=== PATIENT | male | born 1945 | race Caucasian/White ===

== ENCOUNTER 2017-02-02 05:15 | Inpatient (IN) ==
[2017-02-02] MEDS ORDERED: Ipratropium/Albuterol Neb 3 ML ONE (05:21)
[2017-02-02] MEDS ORDERED: Ipratropium/Albuterol Neb 3 ML IH ONE (05:26)
[2017-02-02] MEDS ORDERED: methylPREDNISolone 125 MG/2 ML VIAL IVP ONE (05:26)
[2017-02-02] MEDS ORDERED: Aspirin 325 MG TABLET PO ONE (05:32)
--- NOTE | 2017-02-02 05:36 | Emergency Department Note ---
Disposition Clinical Impression: Chest pain, Shortness of breath STEMI (ST elevation myocardial infarction) Qualifiers: Involved coronary artery: unspecified coronary artery Qualified Code(s): I21.3 - ST elevation (STEMI) myocardial infarction of unspecified site Disposition: Admitted As Inpatient Condition: Serious Time of Disposition: 06:46 SOB HPI - General Chief Complaint: ED Shortness of Breath/Dyspnea Stated Complaint: TALHA Time Seen by Provider: 02/02/17 05:18 Source: patient, EMS Mode of arrival: EMS Limitations: no limitations Nursing Notes Reviewed: Yes Vital Signs Reviewed: Yes - History of Present Illness Patient presents to the ED with the chief complaint of shortness of breath. 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 Status post kidney resection a few years ago. 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 States that he also woke up with chest heaviness and tightness that is centralized, nonradiating, nonpleuritic, better or worse with nothing. No previous history of pain like this, no previous h/o ND, not on ASA/Plavix, no anti-coagulation. EMS reports they got to his house and he was giving himself a breathing treatment and was very SOB. Once they placed him on oxygen. He reports feeling better. Reports that he gets chemotherapy every other Friday and is due up this coming Friday. Had several rounds radiation for previous lung cancer and is scheduled to start radiation again seen, last dose was over 2 years ago. No fever or vomiting. Has had pain and swelling in both of his legs equally bilaterally. - Related Data Home Medications Medication Instructions Recorded Confirmed Cyclobenzaprine [Flexeril] 10 mg PO TID 02/21/15 01/17/17 Albuterol Neb [Proventil Neb] 2.5 mg IH TID 10/01/16 01/17/17 Oxycodone HCl [Oxycontin] 10 mg PO TID PRN 10/01/16 01/17/17 Oxymorphone HCl [Opana] 10 mg PO Q4H 10/16/16 01/17/17 Albuterol Sulfate [Albuterol 1 puff IH Q4H PRN 10/24/16 01/17/17 Inhaler] Tamsulosin HCl [Flomax] 0.8 mg PO DAILY 10/24/16 01/17/17 Previous Rx's Medication Instructions Recorded Phenazopyridine [Pyridium] 100 mg PO TID PRN #90 tablet 10/18/16 LORazepam [Ativan] 0.5 mg PO Q6H PRN #90 tablet 10/24/16 Lidocaine/Prilocaine CREAM [Emla] 5 gm TP AD #1 tube 10/24/16 Loratadine [Claritin] 10 mg PO PRN PRN #60 capsule 10/24/16 Magic Mouthwash 10 ml PO TID PRN #260 ml 10/24/16 Omeprazole [PriLOSEC] 20 mg PO DAILY #90 cap 10/24/16 Ondansetron [Zofran] 8 mg PO Q8HR PRN #90 tablet 10/24/16 Prochlorperazine Maleate 10 mg PO Q6HR PRN #60 tablet 10/24/16 [Compazine] Loperamide [Imodium] 2 cap PO AD PRN #30 capsule 11/01/16 Zolpidem [Ambien] 5 mg PO HS PRN #10 tablet 11/22/16 Amitriptyline [Elavil] 25 mg PO HS #60 tablet 01/22/17 Allergies Allergy/AdvReac Type Severity Reaction Status Date / Time penicillin V AdvReac Unknown unknown Verified 11/22/16 13:14 Penicillins AdvReac Unknown unknown Verified 11/22/16 13:14 vancomycin AdvReac Unknown unknown Verified 11/22/16 13:14 Beta-lactam AdvReac Unknown unknown Uncoded 11/22/16 13:14 Constitutional: Denies: fever Eyes: Denies: vision change Cardiovascular: Reports: chest pain, dyspnea on exertion, edema Respiratory: Reports: cough, dyspnea Gastrointestinal: Denies: nausea, vomiting Musculoskeletal: Denies: back pain Past Medical History - Past Medical History Attestation: Yes The following information was validated with the patient. Source: patient Medical history: Reports: asthma, cancer, COPD, hyperlipidemia, hypertension, renal disease Surgical history: Reports: appendectomy, cancer surgery Psychiatric history: Reports: no psych history - Social History Smoking Status: Current every day smoker Smokeless Tobacco Status: No Alcohol use: Reports: occasionally Drug use: Reports: none Physical Exam - General Limitations: no limitations General appearance: alert, in distress - Head Head exam: atraumatic, normocephalic, normal inspection - Eye Eye exam: Present: PERRL - ENT ENT exam: mucous membranes dry - Respiratory Respiratory exam: Present: respiratory distress, wheezes (Throughout), accessory muscle use. Absent: normal lung sounds bilaterally - Cardiovascular Cardiovascular exam: Present: tachycardia, systolic murmur - Abdominal Exam Abdominal exam: Present: soft, Non-Tender - Extremities Exam Extremities exam: Present: pedal edema (bilat 2+) - Neurological Exam Neurological exam: Present: alert, oriented X3 - Psychiatric Psychiatric exam: Present: anxious - Skin Skin exam: Present: warm, intact, normal color, diaphoresis Course Course Narrative: Patient presenting with chest pain and shortness breath. No history of CAD, however, has concerning symptoms. EKG, chest x-ray, lab work ordered will be admitted. Could also be COPD exacerbation and/or pulmonary embolism due to active cancer. - Reevaluation(s) Reevaluation #1: I spoke with slackman, Dr. Mai, due to the patient's pain and EKG morphology changes, he agreed with the STEMI alert and will be in. Time: 05:49 Vital Signs Temperature 0 F L 02/02/17 05:17 Pulse Rate 102 02/02/17 05:17 Respiratory Rate 30 02/02/17 05:17 Blood Pressure 102/84 02/02/17 05:17 O2 Sat by Pulse Oximetry 98 02/02/17 05:17 Temperature 0 F L 02/02/17 06:30 Pulse Rate 96 02/02/17 06:20 Respiratory Rate 0 02/02/17 06:30 Blood Pressure 0/0 02/02/17 06:30 O2 Sat by Pulse Oximetry 98 02/02/17 06:20 Oxygen Delivery Oxygen Delivery Simple Mask Shortness of Breath/Dyspnea - Lab Data Result diagrams: 02/02/17 06:00 02/02/17 06:00 - EKG Data EKG attestation: Yes I reviewed and interpreted this EKG. EKG results narrative: EKG obtained at 05:35, patient having active chest pain, EKG shows sinus rhythm , rate 99, VT interval 125, QRS 88, QTC 385, normal axis, ST segment elevation in leads 2 and aVF and borderline in lead 3, which is significantly changed from previous on 09/27/2016. STEMI Alert called Attestation Statement - Attestation Attestation: I personally interviewed and examined this patient and my medical decision- making was reviewed with the ED Resident Physician, Dr. Field. I agree with the documented findings, disposition and treatment plan as described except to the extent set forth below. Patient is 71-year-old white male who presented by EMS today with complaints of shortness of breath and substernal chest pain. Symptoms began acutely approximately 20 minutes prior to arrival and arrives in respiratory distress on a nonrebreather with tachypnea and increased work of breathing. Patient's complaining of ongoing substernal chest discomfort on arrival to the ED. EKG obtained on arrival showed changes concerning for possible inferior ST elevation although low voltage made it difficult to read. We quickly obtained a second EKG and patient repositioning and felt that it was showing definite changes from prior EKGs in total morphology with ST elevation in 2 and F and flattened T waves across the anterior leads. At this point we called a STEMI alert and spoke with Dr. Foster by phone in regards to patient's EKG changes and ongoing pain diaphoresis and shortness of breath. STEMI alert initiated, appropriate meds ordered, labs drawn and sent, and PCXR ordered. Patient will be sent directly to the [facility] for further intervention and treatment of chest pain in ST elevation ND.
[2017-02-02] MEDS ORDERED: Aspirin 81 MG TAB.CHEW PO ONE (05:46)
[2017-02-02] MEDS ORDERED: *HR* Ticagrelor 90 MG TABLET PO ONE (05:46)
[2017-02-02] MEDS ORDERED: *HR* Heparin 5,000 UNIT/ML VIAL IVP ONE (05:46)
[2017-02-02] MEDS ORDERED: Heparin 25,000 UNIT/500 ML D5W 25,000 UNIT/500 ML MLS IVC SCH (06:00)
[2017-02-02] MEDS ORDERED: *HR* FentaNYL (PF) 100 MCG/2 ML VIAL ONE (06:14)
[2017-02-02] MEDS ORDERED: 0.9 % Sodium Chloride 1,000 ML ONE (06:14)
[2017-02-02] MEDS ORDERED: *HR* Midazolam HCl 5 MG/5 ML VIAL IVP ONE (06:14)
[2017-02-02] MEDS ORDERED: Heparin 1,000 UNITS/500 mL NS 500 ML ONE ×2 (06:14→16:35)
[2017-02-02] MEDS ORDERED: Verapamil 5 MG/2 ML VIAL ONE (06:14)
[2017-02-02] MEDS ORDERED: *HR* Heparin 10,000 UNIT/10 ML VIAL ONE (06:15)
[2017-02-02] MEDS ORDERED: Nitroglycerin 1,000 MCG/10 ML VIAL IV ONE (06:15)
[2017-02-02 06:24] LABS: Basophils % 0.1 %; Hemoglobin 7.6 g/dL (12.9-16.9); Lymphocytes % 4.9 %; Nucleated Red Blood Cells 0.9 /100 WBC (0)
[2017-02-02 06:26] LABS: Hematocrit 22.9 % (37.5-50.1); Immature Granulocytes % 4.2 % (0-4); Immature Platelets 9.2 % (1.1-6.1); Lymphocytes # 1.1 K/mcL (0.6-4.6); Mean Corpuscular HGB Conc 33.2 g/dL (31.6-35.5); Mean Corpuscular Hemoglobin 36.9 pg (28.0-33.3); Mean Corpuscular Volume 111.2 fL (83.0-100.0); Mean Platelet Volume 11.9 fL (9.4-12.4); Monocytes # 2.4 K/mcL (0.0-1.3); Monocytes % 10.3 %; Neutrophils # 18.7 K/mcL (1.6-8.9); Red Blood Count 2.06 M/mcL (4.19-5.50); Segmented Neutrophils % 80.5 %
[2017-02-02 06:35] LABS: INR 1.7; Prothrombin Time 18.1 Seconds (9.4-12.1)
[2017-02-02 06:38] LABS: Activated Partial Thrombo Time 25.2 Seconds (26.0-36.0)
[2017-02-02 06:39] LABS: Platelet Count 27 K/mcL (140-400); Potassium 4.4 mEq/L (3.5-4.5)
--- NOTE | 2017-02-02 06:58 | Pre-Sedation Evaluation ---
Pre-sedation evaluation - Pre-sedation checklist Date of procedure: 02/02/17 Procedure: [facility] Recent Vitals: Last Vital Signs Temp 0 F L 02/02/17 06:30 Pulse 96 02/02/17 06:20 Resp 0 02/02/17 06:30 BP 0/0 02/02/17 06:30 Pulse Ox 98 02/02/17 06:20 H&P (including ROS) documented in medical record: Yes Previous reaction to sedatives/anesthetics: No Dietary Status: NPO after Midnight Dentition: poor dentition ASA Classification *see protocol: CLASS II-Mild systemic disease Plan of Care: Pt appropriate candidate for procedure/moderate/conscious sedation , Risks/benefits of procedure/sedation discussed w/ patient/family
[2017-02-02 06:59] LABS: Anisocytosis 1+ (Not Present); Macrocytosis Present (Not Present); Platelet Estimate Marked Decrease (Normal)
[2017-02-02 07:00] LABS: Poikilocytosis 1+ (Not Present); Polychromasia 1+ (Not Present)
--- NOTE | 2017-02-02 07:01 | Cardiology History & Physical ---
Date of Encounter: 02/02/17 Time of Encounter: 07:00 Assessment and Plan (1) COPD exacerbation Current Visit: Yes Status: Acute Nebs, steroids, antibiotics. Will call hospitalist to discuss transfer as [facility] shows minimal CAD with normal EF. The assessment and plan as outlined above was discussed with the patient and/or family members who expressed understanding and agreement. All questions were answered. (2) Acute kidney injury Current Visit: Yes Status: Acute Labs drawn in ED returned after cath completed show ROLANDA. 200 NS/hour. The assessment and plan as outlined above was discussed with the patient and/or family members who expressed understanding and agreement. All questions were answered. (3) Primary cancer of right upper lobe of lung Current Visit: No Status: Chronic Undergoing chemoradiation. The assessment and plan as outlined above was discussed with the patient and/or family members who expressed understanding and agreement. All questions were answered. (4) Thrombocytopenia Current Visit: Yes Status: Acute The assessment and plan as outlined above was discussed with the patient and/or family members who expressed understanding and agreement. All questions were answered. (5) Chest pain Current Visit: Yes Status: Acute Severe chest pain with questionable inferior current of injury. STEMI alert activated by ED. Aspirin, brilinta and heparin given in ED. The assessment and plan as outlined above was discussed with the patient and/or family members who expressed understanding and agreement. All questions were answered. Qualifiers: Chest pain type: other chest pain Qualified Code(s): R07.89 - Other chest pain; R07.8 - Other chest pain History of Present Illness Chief complaint: chest pain/dyspnea HPI: Mr. Doss is a 71 year old male with COPD and lung cancer on chemoradiation along with bladder mets presenting to ED with chest pain, weakness and falls. Initial history reported by ED was sudden onset severe chest pain not relieved with aspirin/NTG and respiratory distress. EKG concerning for borderline inferior ST changes concerning for STEMI per ED and STEMI alert was activated. 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 After cardiac catheterization complete, further history obtained from patient and family notes chest pain for several months. He decided to come in today because he had severe chest pain, felt weak, dyspneic as well and fell a few times. Past Med Surg Social Fam HX - Past Medical History Medical history: asthma, cancer, COPD, hyperlipidemia, hypertension, renal disease Psychiatric history: no psych history - Past Surgical History Surgical History: appendectomy, cancer surgery - Social History Smoking Status: Current every day smoker Smokeless Tobacco Status: No Alcohol use: occasionally Drug use: none Medications and Allergies Cyclobenzaprine [Flexeril] 10 mg PO TID 02/21/15 [History] Albuterol Neb [Proventil Neb] 2.5 mg IH TID 10/01/16 [History] Oxycodone HCl [Oxycontin] 10 mg PO TID PRN 10/01/16 [History] Oxymorphone HCl [Opana] 10 mg PO Q4H 10/16/16 [History] Phenazopyridine [Pyridium] 100 mg PO TID PRN #90 tablet 10/18/16 [Rx] Albuterol Sulfate [Albuterol Inhaler] 1 puff IH Q4H PRN 10/24/16 [History] LORazepam [Ativan] 0.5 mg PO Q6H PRN #90 tablet 10/24/16 [Rx] Lidocaine/Prilocaine CREAM [Emla] 5 gm TP AD #1 tube 10/24/16 [Rx] Loratadine [Claritin] 10 mg PO PRN PRN #60 capsule 10/24/16 [Rx] Magic Mouthwash 10 ml PO TID PRN #260 ml 10/24/16 [Rx] Omeprazole [PriLOSEC] 20 mg PO DAILY #90 cap 10/24/16 [Rx] Ondansetron [Zofran] 8 mg PO Q8HR PRN #90 tablet 10/24/16 [Rx] Prochlorperazine Maleate [Compazine] 10 mg PO Q6HR PRN #60 tablet 10/24/16 [Rx] Tamsulosin HCl [Flomax] 0.8 mg PO DAILY 10/24/16 [History] Loperamide [Imodium] 2 cap PO AD PRN #30 capsule 11/01/16 [Rx] Zolpidem [Ambien] 5 mg PO HS PRN #10 tablet 11/22/16 [Rx] Amitriptyline [Elavil] 25 mg PO HS #60 tablet 01/22/17 [Rx] Allergies penicillin V Adverse Reaction (Unknown, Verified 11/22/16 13:14) unknown Penicillins Adverse Reaction (Unknown, Verified 11/22/16 13:14) unknown vancomycin Adverse Reaction (Unknown, Verified 11/22/16 13:14) unknown Beta-lactam Adverse Reaction (Unknown, Uncoded 11/22/16 13:14) unknown All Systems Review: A 10-system review of systems was performed and is negative for pertinent findings except as documented above in the HPI. - Constitutional Constitutional: no chills, no fever(s) - EENT Eyes: no blurred vision, no loss of vision Nose, mouth and throat: no bleeding gums, no epistaxis - Cardiovascular Cardiovascular: chest pain at rest, chest pain with exertion, dyspnea at rest, dyspnea on exertion - Respiratory Respiratory: cough, dyspnea, no hemoptysis - Gastrointestinal Gastrointestinal: no hematemesis, no hematochezia - Genitourinary Genitourinary: no dysuria, no hematuria - Integumentary Integumentary: no erythema, no rash - Neurological Neurological: no syncope, no tingling - Psychiatric Psychiatric: no anxiety, no depression - Hematological/Lymphatic Hematologic/Lymphatic: no easy bleeding, no easy bruising Physical Examination Vital Signs, Last 4 Hours Temp Pulse Resp BP Pulse Ox 02/02/17 06:30 0 F L 0 0/0 02/02/17 06:20 96 18 106/62 98 02/02/17 06:05 99 18 112/69 98 02/02/17 05:50 100 30 116/68 98 02/02/17 05:49 99 General: Conversant, Other (resp distress) HEENT: Atraumatic Neck: No JVD Cardiac: Reg Rate and Rhythm Lungs: Other (wheeze) Neuro: Alert and responsive Abdomen: Soft Skin: No rashes noted on visualized skin Musculoskeletal: No Chest Wall Tenderness Extremities: No Edema Results 02/02/17 06:00 02/02/17 06:00 Lab Results 02/02/17 02/02/17 02/02/17 06:00 06:00 06:00 WBC 23.2 H Hgb 7.6 L Hct 22.9 L Plt Count 27 L* INR 1.7 APTT 25.2 L Sodium 130 L Potassium 4.4 Chloride 95 L Carbon Dioxide 25 BUN 41 H Creatinine 1.95 H Glucose 139 H Calcium 9.0 Magnesium 2.0 Troponin I B-Natriuretic Peptide 02/02/17 02/02/17 06:00 06:00 WBC Hgb Hct Plt Count INR APTT Sodium Potassium Chloride Carbon Dioxide BUN Creatinine Glucose Calcium Magnesium Troponin I 0.01 B-Natriuretic Peptide 146 H - EKG Interpretation EKG results cardiology: sinus rhythm (questionable inferior st changes)
[2017-02-02] MEDS ORDERED: Levofloxacin 500 MG/100 ML 500 MG/100 ML BAG IVPB ONE (07:07)
[2017-02-02] MEDS ORDERED: 0.9 % Sodium Chloride 1,000 ML IVC ONE (07:10)
[2017-02-02] MEDS ORDERED: Ipratropium/Albuterol Neb 3 ML IH PRN (07:11)
--- NOTE | 2017-02-02 07:12 | Invasive Diagnostic Lab Proc ---
Name: Renzo Doss Date of Study: 02/02/2017 Date: 1945 Ht: 68.1in Medical Record#: [id number] Age: 71 Wt: 159.99lb Gender: Male BSA: 1.86 Order #: [id number] BMI: 24.25 Physicians Procedure Physician: Oskar Mai MD, [facility] Referring MD: Referring MD: Staff Name Position Time In [facility] RT (R) Scrub 06:37 AM Juan Narayanan RN Director Medical Economics 06:37 AM Maria A Atkins RN Director Medical Economics 06:37 AM Linnea Santos RT (R) Monitor 06:37 AM Indications Indication STEMI Procedures Performed Procedure L HRT ARTERY/VENTRICLE ANGIO Pre-Procedure Checklist Informed consent is complete signed and on chart. H&P is on chart. ID band is on and ID verified with patient. Patient NPO for procedure The procedure was described for the patient and questions were answered. Blood Pressure: 127/80 ECG is on chart. Rhythm: NSR Plan of Care Patient will tolerate the procedure without complications. Adequate level of comfort will be maintained. Hemodynamics will remain stable Patient will recover from procedure without complications. Respiratory function will be maintained. Cardiac rhythm will remain stable. Patient temperature will be maintained. Patient and/or family have verbalized understanding of the procedure. Patient Education Intravenous Access Time IV Size Location DC'd Fluid/Drip Rate Units RN 06:30 AM 20g 1 /" Patent On Arrival Rt Arm 0.9NaCl 25 ml/hr 06:30 AM Port Allergies Opioid Penicillin codeine penicillin V Beta-lactam vancomycin Opioids - Morphine Analogues Penicillins Vital Signs Time BP (mmHg) HR (bpm) O2 Sat. RR (bpm) LOC / % 5 = Fully awake and oriented or at pre-proc level 06:38 AM 127 / 80 97 100 % 4 = Oriented but drowsy 06:36 AM 127 / 80 97 100 % 19 06:41 AM 137 / 77 97 100 % 16 06:46 AM 118 / 71 95 100 % 11 06:38 AM / % 4 = Oriented but drowsy Procedural Medications Time Medication Dose Units Method Given By 06:38 AM Oxygen 6 L/min Oxy Mask Maria A Atkins RN 06:38 AM Versed 2 mg Intravenous Juan Narayanan RN 06:38 AM Fentanyl 25 mcg Intravenous Juan Narayanan RN 06:38 AM Lidocaine 2% 0.5 ml Subcutaneous Oskar Mai MD, [facility] 06:39 AM Heparin 4000 units Nitroglycerin 200 mcg Verapamil 2.5 mg Intraarterial Oskar Mai MD, FAC 06:40 AM Lidocaine 2% 15 ml Subcutaneous Oskar Mai MD, [facility] Masha Score Preprocedure Postprocedure Activity 2- Moves 4 extremities sustained head lift Activity 2- Moves 4 extremities sustained head lift Circulation 2- SBP +/= 20 points of pre-anesthetic level Circulation 2- SBP +/= 20 points of pre-anesthetic level Consciousness 2- Awake and alert oriented x 3 Consciousness 2- Awake and alert oriented x 3 O2 Saturation 2- Able to maintain O2 satruation of 92% on room air O2 Saturation 2- Able to maintain O2 satruation of 92% on room air Respiratory 2- Able to deep breathe and cough well Respiratory 2- Able to deep breathe and cough well Total Score 10 Total Score 10 Contrast Agent: Isovue Diagnostic Contrast: 63 ml Total Contrast: 63 ml Fluoro Dose: 125 mGy Activated Clotting Time Time Seconds to Clot 06:50 AM 202 Procedure Log Time Note Enter By 06:32 AM Vitals capture started with the following parameters, Patient=Adult, Interval=5 min, Initial Jhofhmsd=834 mmHg, Deflation Rate=5 mmHg, Cuff placed on Right Arm 06:32 AM CathStat 06:36 AM Vitals capture started with the following parameters, Patient=Adult, Interval=5 min, Initial Tcwinizh=477 mmHg, Deflation Rate=5 mmHg, Cuff placed on Right Arm 06:36 AM HR=97 bpm, GXHD=365/80 mmhg, GzU3=535.0 %, Resp=19 B/min 06:37 AM Pt arrived to label paster 2 at 06:37 ejohnson 06:37 AM Physician arrived 06:37 ejohnson 06:37 AM Meet and greet completed ejohnson 06:37 AM Sign in performed according to hospital policy. ejohnson 06:37 AM Procedure start 06:37 ejohnson 06:37 AM Torrie Avelar RT (R) Position: Scrub Time in: 06:37 ejohnson 06:37 AM Juan Narayanan RN Position: Director Medical Economics Time in: 06:37 ejohnson 06:37 AM Maria A Atkins RN Position: Director Medical Economics Time in: 06:37 ejohnson 06:37 AM Recorded ECG: HR=97 Condition=Condition 1 06:37 AM Linnea Santos RT (R) Position: Monitor Time in: 06:37 ejohnson 06:37 AM Patient charges- Angio tray pack, Navilyst 3mm J, Pulse Oximetry and ACIST tubing and transducer ejohnson 06:38 AM Time: 06:37 Patient comfortable and pain free: Yes ejohnson 06:38 AM Time: 06:38LOC: 4 = Oriented but drowsy ejohnson 06:38 AM Time: 06:38 Oxygen on at 6 L/min per Oxy Mask by Maria A Atkins RN ejohnson 06:38 AM Time: 06:38 Versed 2 mg Intravenous Given by Juan Narayanan RN ejohnson 06:38 AM Time: 06:38 Fentanyl 25 mcg Intravenous Given by Juan Narayanan RN ejohnson 06:38 AM Time out performed according to hospital policy ejohnson 06:38 AM Pressure channel 1 zero failed. 06:39 AM Time: 06:38 0.5 ml Lidocaine 2% to right radial Subcutaneous Given by Oskar Mai MD, [facility] ejohnson 06:40 AM Recorded Pressure: Ao, HR=96, Condition=Condition 1 (Aorta) Ao 122/63/91 06:40 AM Time: 06:40 15 ml Lidocaine 2% to right groin Subcutaneous Given by Oskar Mai MD, [facility] ejohnson 06:40 AM Pressure channel 1 zero failed. 06:41 AM 6Fr IM Runway guide catheter was used to cannulate the PCI vessel successfully. reused? No ejohnson 06:41 AM RCA angiography performed in multiple views. ejohnson 06:41 AM Catheter removed ejohnson 06:41 AM 5Fr FL 4 catheter inserted over the wire DNC ejohnson 06:41 AM Access obtained by percutaneous puncture. 6Fr 10cm Terumo [place] sheath placed in right Femoral artery. [id number] ejohnson 06:41 AM HR=97 bpm, FETY=503/77 mmhg, QvF4=699.0 %, Resp=16 B/min 06:42 AM LCA angiography performed in multiple views. ejohnson 06:42 AM Recorded Pressure: Ao, HR=96, Condition=Condition 1 (Aorta) Ao 108/92/100 06:43 AM Catheter removed ejohnson 06:43 AM Pressure channel 1 zeroed. 06:43 AM 5Fr Pigtail catheter inserted over the wire DNC ejohnson 06:43 AM Catheter selectively placed in left ventricle ejohnson 06:43 AM Bolus angiogram of left Ventricle complete: 10 ml/sec for a total of 25 mls ejohnson 06:44 AM Recorded Pressure: LV, HR=96, Condition=Condition 1 (Left Ventricle) LV 111/8/19 06:44 AM Recorded Pressure: LV, Ao, HR=96, Condition=Condition 1 (Left Ventricle) LV 90/90/75, (Aorta) Ao 104/62/80 06:45 AM Catheter removed ejohnson 06:45 AM Bolus angiogram of right Femoral complete: 4 ml/sec for a total of 7 mls ejohnson 06:46 AM Procedure completed at 06:46 ejohnson 06:46 AM Sign out completed: Radiation Dose 124.65 mGy Fluoro Time: 0.8 Isovue 370 - 200ml contrast 63 ml given by Oskar Mai MD, FACC. Complications: NoneCardiac Rehab Consult needed: NoConfirmed administered medications: No ejohnson 06:46 AM Isovue 370 - 200ml,1 Bottle(s) used. ejohnson 06:46 AM HR=95 bpm, VDSS=918/71 mmhg, SvG7=798.0 %, Resp=11 B/min, Comment=NSR 06:47 AM Post ECG NSR ejohnson 06:48 AM Post Blood Pressure 118/71 ejohnson 06:48 AM 06:48 Post Pulses Bilateral DP & PT 1+ ejohnson 06:48 AM Information taught Cardiac Cath ejohnson 06:48 AM Education needs Procedure, Plan of Care, and Disease Process ejohnson 06:48 AM Learning barriers :None ejohnson 06:48 AM Family placed in consult room. ejohnson 06:48 AM Complications: None ejohnson 06:48 AM Fluoro Time: 0.8 ejohnson 06:48 AM Isovue 370 - 200ml contrast 63 ml given by Oskar Mai MD, FACC. ejohnson 06:48 AM Radiation Dose 124.65 mGy ejohnson 06:53 AM Time: 06:38 Patient comfortable and pain free: Yes ejohnson 06:53 AM Time: 06:38LOC: 4 = Oriented but drowsy ejohnson 06:57 AM Report given to Diya NICHOLS Pt taken to Room #11. 06:56 ejohnson 07:04 AM Patient out of room: 07:04 ejohnson Complications Complication None None Hemodynamics Pressures Site Systolic/A Wave Diastolic/V Wave Mean AO 122 63 91 AO 108 92 100 LV 111 8 19 LV 90 90 75 AO 104 62 80 Post Procedure Information Blood Pressure: 118/71 mmHg Rhythm: NSR Post procedural instructions were given Pulses Time Site Pre-Procedure Post-Procedure Note 02/02/2017 6:36:00 AM Bilateral radial 1+ 02/02/2017 6:36:00 AM Bilateral DP & PT 1+ 6:48:00 AM Bilateral DP & PT 1+ Updated by Maria A Atkins RN on 02/02/2017 7:04:38 AM Maria A Atkins RN electronically signed on 02/02/2017 7:05:10 AM with status of Final
[2017-02-02] MEDS ORDERED: 0.9 % Sodium Chloride 1,000 ML IVC SCH ×3 (07:15→14:22)
--- NOTE | 2017-02-02 08:12 | Invasive Diagnostic Lab ---
Name: Renzo Doss Date of Study: 02/02/2017 Date: 1945 Ht: 173.0 cm /68.1 in Medical Record#: [id number] Age: 71 Wt: 72.6 kg / 159.99 lb Account/Order#: [id number] Gender: Male BSA: 1.86 Order #: [id number] Fluoro Dose: 125 mGy BMI: 24.25 Procedure Physician: Oskar Mai MD, FACC Referring MD: Referring MD: Procedures Performed: LEFT HEART CATH Iliofemoral angiography Indications: STEMI Impressions: There is minimal coronary artery disease. The left ventricle is normal and has normal contractility EF 60% Recommendations: Optimal medical therapy of patient's disease. Aggressive risk factor modification. History/Risk Factors: CP SOB Cancer Current/Recent Smoker Procedure Access obtained in the right Femoral artery by percutaneous puncture. Angiogram via sheath completed. Complications: None, None Contrast: Isovue 63ml Hemodynamics: Pressures Site Systolic/ A Wave Diastolic/ V Wave End Diastolic/ Mean HR AO 122 63 91 96 AO 108 92 100 96 LV 111 8 19 96 LV 90 90 75 98 AO 104 62 80 95 LV Ventriculography Ejection Method: LV Gram Ejection Fraction: 60% Wall Motion: HAYES Anterobasal Normal Anterolateral Normal Apical: Normal Inferoapical Normal Inferobasal Normal Coronary Dominance: right Lesion Findings/Interventions * Left Main Coronary Artery The LMCA is angiographically free of disease. * Left Anterior Descending There is a 15% stenosis in the Mid LAD. * Circumflex There is a 15% stenosis in the Mid Circumflex. * Right Coronary Artery There is a 15% stenosis in the Distal RCA. Iliofemoral angiography shows appropriate sheath placement in [employer]. No significant disease visualized. Updated by Oskar Mai MD, FACC on 02/02/2017 8:04:29 AM Oskar Mai MD, FACC electronically signed on 02/02/2017 8:08:36 AM with status of Final
[2017-02-02] MEDS ORDERED: *HR* Atropine Sulfate 1 MG/10 ML SYRINGE ONE (08:14)
[2017-02-02] MEDS ORDERED: Acetaminophen 325 MG TABLET PO PRN (08:54)
[2017-02-02] MEDS ORDERED: Ondansetron 4 MG/2 ML VIAL IVP PRN (08:54)
[2017-02-02] MEDS ORDERED: Naloxone 0.4 MG/ML INJ IVP PRN (08:54)
[2017-02-02] MEDS ORDERED: *HR* Morphine 2 MG/ML SYRINGE IVP PRN ×3 (08:54→18:36)
--- NOTE | 2017-02-02 09:08 | Internal Med History&Physical ---
Date of Encounter: 02/02/17 Time of Encounter: 08:15 Assessment and Plan (1) STEMI (ST elevation myocardial infarction) Current visit: Yes Status: Ruled-out Patient presented with chest pain, dyspnea and hypoxia associated with changes in EKG with possible ST elevation. STEMI alert was called in the emergency room , cardiology was consulted and patient underwent emergent left heart catheterization, which minimal CAD and normal EF. Patient is being transferred to hospitalist service at this time. Qualifiers: Involved coronary artery: unspecified coronary artery Qualified Code(s): I21.3 - ST elevation (STEMI) myocardial infarction of unspecified site (2) Sepsis Current visit: Yes Status: Acute Patient presented with tachycardia, tachypnea, leukocytosis, mild lactic acidosis with possible pneumonia. Continue IV hydration and IV antibiotics. Monitor vital signs closely. High risk for complications. Qualifiers: Sepsis type: sepsis due to unspecified organism Qualified Code(s): A41.9 - Sepsis, unspecified organism (3) COPD exacerbation Current visit: Yes Status: Acute Patient is a chronic smoker, trying to cut down but continues to smoke. Continue scheduled bronchodilators and start IV steroids. Supplemental oxygen as needed, wean down FiO2 as tolerated. Home oxygen evaluation at the time of discharge. Patient is very reluctant to stay in the hospital, but currently agreeable to stay tonight after explaining the concerns regarding underlying pneumonia, renal failure, anemia and thrombocytopenia. (4) Pneumonia Current visit: Yes Status: Acute Patient presents with respiratory distress, noted to have hypoxia and leukocytosis, chest x-ray shows possible infiltrates in bilateral lower lobes, could be fluid versus pneumonia. Given his immunosuppression due to ongoing chemotherapy and multiple malignancies, will start broad-spectrum IV antibiotics -aztreonam and Levaquin. Follow blood cultures. We will get CT chest for further evaluation. Supplemental oxygen and supportive care. Pneumococcal immunization if not received. Qualifiers: Pneumonia type: due to unspecified organism Laterality: bilateral Lung location: lower lobe of lung Qualified Code(s): J18.9 - Pneumonia, unspecified organism (5) Acute on chronic renal failure Current visit: Yes Status: Chronic Patient is noted to have chronic kidney disease stage III and follows with nephrology as outpatient. Baseline serum creatinine noted to be around 1.2 and it is currently 1.95. Could be related to chemotherapy, underlying infection. Start IV hydration and monitor serum creatinine closely. Dose antibiotics according to current GFR. Qualifiers: Acute renal failure type: unspecified Chronic kidney disease stage: stage 3 (moderate) Qualified Code(s): N17.9 - Acute kidney failure, unspecified; N18.3 - Chronic kidney disease, stage 3 (moderate) (6) Bladder cancer Current visit: Yes Status: Chronic Follows with oncology and urology as outpatient. Plan for cystectomy in the future when he is stable from chemotherapy for other cancers. 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 His cancer was deemed inoperable and he has been receiving chemotherapy, follows with oncology as outpatient. (8) Cancer of left kidney Current visit: Yes Status: Inactive Status post left nephrectomy. (9) Chronic pain Current visit: Yes Status: Chronic Continue when necessary oxycodone and IV morphine. Qualifiers: Chronic pain type: due to neoplasm Qualified Code(s): G89.3 - Neoplasm related pain (acute) (chronic) (10) Anxiety Current visit: Yes Status: Chronic Continue benzodiazepines, patient is also noted to be on Elavil and Ambien for insomnia. (11) Tobacco use disorder Current visit: Yes Status: Chronic Advised smoking cessation, patient understands the risks of continued smoking due to underlying lung cancer and COPD. He is trying to cut down, nicotine transdermal patch. (12) Anemia Current visit: Yes Status: Chronic Patient is noted to have macrocytic anemia with hemoglobin 7.6 today, which is noted to be lower than on his previous labs. This could be related to chemotherapy. Will check stool for occult blood. Check iron profile, vitamin B12 and folate levels. Qualifiers: Anemia type: unspecified type Qualified Code(s): D64.9 - Anemia, unspecified (13) Thrombocytopenia Current visit: Yes Status: Acute Noted to have platelet count of 27,000, which is a new onset of thrombocytopenia for patient. This could be related to chemotherapy versus underlying pneumonia and sepsis. Continue to monitor for active signs of bleeding, avoid medical anticoagulation for now. Internal Medicine - H&P: HPI Chief complaint: Shortness of breath Admitted From: Emergency Dept Plans for Post Hospital Care: Home History of present illness: Mr. Doss is a 71 year old male with history of multiple malignancies including lung, kidney and bladder cancer, currently on chemotherapy, presents with complaints of shortness of breath. Patient does have a somewhat poor baseline functional status with intermittent hacking cough and exertional dyspnea at baseline. He reports worsening symptoms of shortness of breath over the last 2 months associated with intermittent coughing bouts after which he feels too weak and falls down, causing multiple bruising on his hands and legs. He had an especially difficult night yesterday with retrosternal chest pain, shortness of breath even at rest associated with wheezing. He tried using albuterol inhaler and nebulizers at home, which did not relieve his symptoms and he had to call EMS. He cannot elaborate on his chest pain further. Patient was noted to be hypoxic and somewhat improved with supplemental oxygen given by EMS. STEMI alert was called in the ER due to EKG changes and patient just returned from heart catheterization that was non-occlusive. Past Med Surg Social Fam HX - Past Medical History Medical history: cancer (right lung, left kidney, bladder), COPD, hypertension, renal disease Psychiatric history: anxiety - Past Surgical History Surgical History: appendectomy, cancer surgery (left nephrectomy in 2004) - Social History Smoking Status: Current every day smoker Packs per day: smokes cigars, currently down to 4-5cigars a day Smokeless Tobacco Status: No Alcohol use: occasionally Drug use: none Occupational status: retired Current living situation: Home, With Family Activity Level: Uses cane/walker Recent Out of Country Travel Within the Last 8 Weeks: No - Family History Mother Hx Family Cancer: Yes (lung cancer) Hx Family Endocrine Disorder: Yes (DM) Father Hx Family Cancer: Yes (Lung cancer) Brother Hx Family Cancer: Yes (Throat cancer) Internal Medicine - H&P: Meds Cyclobenzaprine [Flexeril] 10 mg PO TID 02/21/15 [History] Albuterol Neb [Proventil Neb] 2.5 mg IH TID 10/01/16 [History] Oxycodone HCl [Oxycontin] 10 mg PO TID PRN 10/01/16 [History] Oxymorphone HCl [Opana] 10 mg PO Q4H 10/16/16 [History] Phenazopyridine [Pyridium] 100 mg PO TID PRN #90 tablet 10/18/16 [Rx] Albuterol Sulfate [Albuterol Inhaler] 1 puff IH Q4H PRN 10/24/16 [History] LORazepam [Ativan] 0.5 mg PO Q6H PRN #90 tablet 10/24/16 [Rx] Lidocaine/Prilocaine CREAM [Emla] 5 gm TP AD #1 tube 10/24/16 [Rx] Loratadine [Claritin] 10 mg PO PRN PRN #60 capsule 10/24/16 [Rx] Magic Mouthwash 10 ml PO TID PRN #260 ml 10/24/16 [Rx] Omeprazole [PriLOSEC] 20 mg PO DAILY #90 cap 10/24/16 [Rx] Ondansetron [Zofran] 8 mg PO Q8HR PRN #90 tablet 10/24/16 [Rx] Prochlorperazine Maleate [Compazine] 10 mg PO Q6HR PRN #60 tablet 10/24/16 [Rx] Tamsulosin HCl [Flomax] 0.8 mg PO DAILY 10/24/16 [History] Loperamide [Imodium] 2 cap PO AD PRN #30 capsule 11/01/16 [Rx] Zolpidem [Ambien] 5 mg PO HS PRN #10 tablet 11/22/16 [Rx] Amitriptyline [Elavil] 25 mg PO HS #60 tablet 01/22/17 [Rx] Allergies penicillin V Adverse Reaction (Unknown, Verified 11/22/16 13:14) unknown Penicillins Adverse Reaction (Unknown, Verified 11/22/16 13:14) unknown vancomycin Adverse Reaction (Unknown, Verified 11/22/16 13:14) unknown Beta-lactam Adverse Reaction (Unknown, Uncoded 11/22/16 13:14) unknown All Systems PM: A 10-system review of systems was performed and is negative for pertinent findings except as documented above in the HPI. - Constitutional Constitutional: no chills, no fever(s), no night sweats - EENT Eyes: no change in vision, no discharge, no pain, no photophobia Ears: no ear discharge, no ear pain, no tinnitus Nose, mouth and throat: no dysphagia, no nasal discharge, no neck pain, no sore throat - Cardiovascular Cardiovascular ROS IM: chest pain, dyspnea, dyspnea on exertion, edema, no diaphoresis, no lightheadedness, no palpitations, no syncope - Respiratory Respiratory: cough, dyspnea, dyspnea on exertion, wheezing, chest congestion - Gastrointestinal Gastrointestinal: no abdominal pain, no diarrhea, no hematemesis, no hematochezia, no melena, no nausea, no vomiting - Musculoskeletal Musculoskeletal ROS IM: no numbness, no tingling - Integumentary Integumentary IM: no rash, no unusual bruising - Neurological Neurological ROS: no confusion, no convulsions, no focal weakness, no numbness, no tingling, no tremor(s) - Hematologic/Lymphatic Hematologic/Lymphatic: no easy bruising - Constitutional Vitals: Temp Pulse Resp BP Pulse Ox 0 F L 87 18 134/87 95 02/02/17 06:30 02/02/17 09:06 02/02/17 07:21 02/02/17 09:06 02/02/17 09:06 General appearance: Present: mild distress, A&O X 3, answers questions appropriately - Respiratory Respiratory exam: Present: rhonchi, wheezes (Bilateral bronchial breath sounds and diffuse wheezing anteriorly and posteriorly). Absent: accessory muscle use , rales - Cardiovascular Cardiovascular exam: Present: RRR, +S1, +S2. Absent: diastolic murmur, gallop, rubs, systolic murmur - GI/Abdominal GI/Abdominal exam: Present: normal bowel sounds, soft, no peritoneal signs. Absent: distended, tenderness - Extremities Exam Extremities exam: Present: full ROM, pedal edema (1+ pitting pedal edema bilateral legs), warm, radial pulses palpable and symetrical. Absent: calf tenderness, cyanotic - Neurological Exam Neurological exam: Present: CN II-XII intact, oriented X3, no focal deficits. Absent: pronater drift, facial droop, speech deficit - Skin Skin exam: Present: dry, intact Internal Med - H&P Results - Labs CBC & Chem 7: 02/02/17 06:00 02/02/17 06:00 Labs: Short CBC 02/02/17 Range/Units 06:00 WBC 23.2 H (4.3-11.1) K/mcL Hgb 7.6 L (12.9-16.9) g/dL Hct 22.9 L (37.5-50.1) % Plt Count 27 L* (140-400) K/mcL Neutrophils # 18.7 H (1.6-8.9) K/mcL BMP 02/02/17 06:00 Sodium 130 L Potassium 4.4 Chloride 95 L Carbon Dioxide 25 BUN 41 H Creatinine 1.95 H Glucose 139 H Calcium 9.0 Cardiac Enzymes 02/02/17 Range/Units 06:00 Troponin I 0.01 (0-0.03) ng/mL - EKG Data -: EKG Interpreted by Myself EKG shows normal: sinus rhythm, ST-T waves (Noted to have 0.5-[address] segment elevation in leads 2, 3, aVF) Rate: normal
[2017-02-02] MEDS: Ipratropium/Albuterol Neb 3 ML IH SCH ×4 (11:11→23:27)
[2017-02-02] MEDS: Levofloxacin 750 MG/150 ML 750 MG/150 ML BAG IVPB SCH (11:41)
--- NOTE | 2017-02-02 14:48 | Event Note ---
Date of Encounter: 02/02/17 Time of Encounter: 14:20 - Cardiology Event Note ED activated for STEMI secondary to chest pain and concern for inferior EKG changes. s/p uncomplicated LHC with mild CAD and normal EF. Labs returned after LHC - patient is thrombocytopenic, anemic, and coagulopathic (plt 27, hgb 7.6, INR 1.7) likely due to metastatic cancer and recent chemotherapy. Then, patient underwent CT chest with findings consistent with hemorrhagic pericardial effusion. Subsequent echo shows moderate-large pericardial effusion with early echo signs of tamponade (patient not tachycardic on echo). PRBC, platelet, and FFP ordered to be transfused. CT surgery called for urgent pericardial window. Suspect that pericardial effusion is malignant and has been worsening, possibly exacerbated by patients thrombocytopenia and coagulopathy (patient also given brilinta and heparin in the ED).
--- NOTE | 2017-02-02 16:42 | Cardiothoracic Consult Note ---
Date of Encounter: 02/02/17 Time of Encounter: 16:43 Assessment and Plan (1) Pericardial effusion with cardiac tamponade Current Visit: Yes Status: Acute The patient is a 71-year-old hypertensive male with hypercholesterolemia, known COPD, and known right lung cancer who presents with a severe episode of left precordial chest pain and shortness of breath. These symptoms have been present for several weeks; however, the episode this morning caused him profound shortness of breath which took quite some time to recover from. The patient underwent a chest CT and transthoracic echocardiogram which revealed evidence of a pericardial effusion with early tamponade physiology. The patient has been recommended for subxiphoid pericardial window. The patient has thrombocytopenia and he has received 6 units of platelets. He also has an elevated INR and will receive FFP during the operation. The patient understands the procedure, benefits, alternatives, and risk, including but not limited to bleeding, infection, injury to the diaphragm, heart, lungs, pneumothorax, and . He gives his informed consent and will proceed with urgent subxiphoid pericardial window this afternoon. The assessment and plan as outlined above was discussed with the patient and/or family members who expressed understanding and agreement. All questions were answered. (2) Pericardial effusion Current Visit: Yes Status: Acute The assessment and plan as outlined above was discussed with the patient and/or family members who expressed understanding and agreement. All questions were answered. - History of Present Illness Consult date: 02/02/17 Requesting physician: Oskar Mai Consult reason: Pericardial effusion with early tapenade physiology. Chief complaint: Substernal chest pain and shortness of breath History of present illness: Mr. Doss is a 71 year old hypertensive man with COPD, hypercholesterolemia, and metachronous bladder cancer, kidney cancer, and right hilar lung cancer. The patient was initially diagnosed with right upper lobe squamous cell lung cancer in 2013. The patient underwent workup; however, was deemed to be an operative candidate because of his COPD with decreased FEV1 and stage IIIB chronic kidney disease. The patient was treated with chemotherapy and radiation therapy and was in remission until recently. A repeat PET scan revealed right hilar hypermetabolic activity. The patient is currently undergoing chemotherapy and was to be evaluated by radiation oncology tomorrow. During the last several weeks the patient has complained of left precordial chest pain and shortness of breath. This morning the symptoms were particularly severe and the patient was evaluated [facility] emergency department. During the evaluation the patient was thought to have an inferior STEMI and underwent emergent cardiac catheterization. This revealed normal coronary anatomy with no flow-limiting lesions and an LVEF 60%. A chest CT revealed a pericardial effusion and subsequent evaluation by transthoracic echocardiogram revealed early tamponade physiology with RV collapse. The patient has been recommended for urgent subxiphoid pericardial window. Past Med Surg Social Fam HX - Past Medical History Medical history: asthma, cancer (Bladder, kidney, right upper lobe lung), COPD, hyperlipidemia, hypertension, renal disease, TIA Psychiatric history: no psych history - Past Surgical History Surgical History: appendectomy, cancer surgery, other (Left nephrectomy.) - Social History Smoking Status: Current every day smoker Packs per day: smokes cigars, currently down to 4-5cigars a day Smokeless Tobacco Status: No Alcohol use: occasionally Drug use: none Occupational status: retired Current living situation: Home - Independent Activity Level: Independent ambulation Recent Out of Country Travel Within the Last 8 Weeks: No Exposure or Possible Exposure to Illness During Travel: No - Family History Mother Hx Family Cancer: Yes (lung cancer) Hx Family Endocrine Disorder: Yes (DM) Father Hx Family Cancer: Yes (Lung cancer) Brother Hx Family Cancer: Yes (Throat cancer) Medications and Allergies Cyclobenzaprine [Flexeril] 10 mg PO TID 02/21/15 [History] Albuterol Neb [Proventil Neb] 2.5 mg IH TID 10/01/16 [History] Oxycodone HCl [Oxycontin] 10 mg PO TID PRN 10/01/16 [History] Oxymorphone HCl [Opana] 10 mg PO Q4H 10/16/16 [History] Phenazopyridine [Pyridium] 100 mg PO TID PRN #90 tablet 10/18/16 [Rx] Albuterol Sulfate [Albuterol Inhaler] 1 puff IH Q4H PRN 10/24/16 [History] LORazepam [Ativan] 0.5 mg PO Q6H PRN #90 tablet 10/24/16 [Rx] Lidocaine/Prilocaine CREAM [Emla] 5 gm TP AD #1 tube 10/24/16 [Rx] Loratadine [Claritin] 10 mg PO PRN PRN #60 capsule 10/24/16 [Rx] Magic Mouthwash 10 ml PO TID PRN #260 ml 10/24/16 [Rx] Omeprazole [PriLOSEC] 20 mg PO DAILY #90 cap 10/24/16 [Rx] Ondansetron [Zofran] 8 mg PO Q8HR PRN #90 tablet 10/24/16 [Rx] Prochlorperazine Maleate [Compazine] 10 mg PO Q6HR PRN #60 tablet 10/24/16 [Rx] Tamsulosin HCl [Flomax] 0.8 mg PO DAILY 10/24/16 [History] Loperamide [Imodium] 2 cap PO AD PRN #30 capsule 11/01/16 [Rx] Zolpidem [Ambien] 5 mg PO HS PRN #10 tablet 11/22/16 [Rx] Amitriptyline [Elavil] 25 mg PO HS #60 tablet 01/22/17 [Rx] amLODIPine [Norvasc] 5 mg PO DAILY 02/02/17 [History] Allergies penicillin V Adverse Reaction (Unknown, Verified 11/22/16 13:14) unknown Penicillins Adverse Reaction (Unknown, Verified 11/22/16 13:14) unknown vancomycin Adverse Reaction (Unknown, Verified 11/22/16 13:14) unknown Beta-lactam Adverse Reaction (Unknown, Uncoded 11/22/16 13:14) unknown All Systems Review: A 10-system review of systems was performed and is negative for pertinent findings except as documented above in the HPI. Physical Examination Vital Signs, Last 4 Hours Temp Pulse Resp BP Pulse Ox 02/02/17 16:21 98.2 F 102 16 121/70 94 02/02/17 16:08 100 112/75 96 02/02/17 15:49 17 95 02/02/17 14:19 98.6 F 100 18 111/82 95 02/02/17 14:04 98.2 F 102 16 99/62 95 General: Conversant, No Apparent Distress Neck: No JVD, Normal carotid pulses Cardiac: Reg Rate and Rhythm, Normal S1 and S2, No Murmur Lungs: Other (Wheezes bilaterally.) Neuro: Alert and responsive, No focal deficits noted Vascular: Normal capillary refill Abdomen: Soft, Non-tender Musculoskeletal: No Chest Wall Tenderness Extremities: No Clubbing, No Cyanosis, No Edema Results 02/02/17 06:00 02/02/17 06:00 Lab Results, Last 24 hours 02/02/17 02/02/17 02/02/17 06:00 06:00 06:00 WBC 23.2 H Hgb 7.6 L Hct 22.9 L Plt Count 27 L* INR 1.7 APTT 25.2 L Sodium 130 L Potassium 4.4 Chloride 95 L Carbon Dioxide 25 BUN 41 H Creatinine 1.95 H Glucose 139 H Calcium 9.0 Magnesium 2.0 Troponin I B-Natriuretic Peptide 02/02/17 02/02/17 06:00 06:00 WBC Hgb Hct Plt Count INR APTT Sodium Potassium Chloride Carbon Dioxide BUN Creatinine Glucose Calcium Magnesium Troponin I 0.01 B-Natriuretic Peptide 146 H - Imaging Chest Xray: image reviewed (Small to moderate right pleural effusion.) Consult Discharge Plan - Plan [facility]: [facility]Primary Care Provider[facility] -
[2017-02-02] MEDS ORDERED: Clindamycin 900 MG/50 ML 900 MG/50 ML IV.SOLN IVPB ONE (17:20)
[2017-02-02] MEDS ORDERED: *HR* FentaNYL (PF) 250 MCG/5 ML VIAL ONE (17:28)
[2017-02-02] MEDS ORDERED: *HR* Phenylephrine 10 MG/ML VIAL ONE (17:37)
[2017-02-02] MEDS ORDERED: *HR* Rocuronium Bromide 50 MG/5 ML VIAL ONE (17:37)
[2017-02-02] MEDS ORDERED: Dexamethasone 4 MG/ML VIAL ONE (17:37)
[2017-02-02] MEDS ORDERED: *HR* EPINEPHrine 1 MG/ML AMPUL ONE (17:39)
[2017-02-02] MEDS ORDERED: Lidocaine 2% Syringe 100 MG/5 ML ONE (17:39)
[2017-02-02] MEDS ORDERED: *HR* Succinylcholine 200 MG/10 ML VIAL IVP ONE (18:09)
[2017-02-02] MEDS ORDERED: *HR* Etomidate 20 MG/10 ML AMPUL IVP ONE (18:09)
--- NOTE | 2017-02-02 18:12 | Operative Note ---
Date of procedure: 02/02/17 Pre-op diagnosis: Pericardial effusion with early tamponade physiology Post-op diagnosis: same Procedure: 1. Subxiphoid pericardial window. Implants: None. Complications: None. Anesthesia: SHELLEY Surgeon: Delaney Manley Estimated blood loss (cc): 10 Specimen: Pericardial fluid, anterior pericardium Condition: stable Disposition: PACU Procedure in Detail: INDICATIONS FOR OPERATION: The patient is a 71-year-old hypertensive male with hypercholesterolemia, known COPD, and known right lung cancer who presents with a severe episode of left precordial chest pain and shortness of breath. These symptoms have been present for several weeks; however, the episode this morning caused him profound shortness of breath which took quite some time to recover from. The patient underwent a chest CT and transthoracic echocardiogram which revealed evidence of a pericardial effusion with early tamponade physiology. The patient has been recommended for subxiphoid pericardial window. FINDINGS AT OPERATION: The patient had approximately 750 mL of a serosanguineous, turbid fluid in the pericardium. No other abnormalities noted. DESCRIPTION OF OPERATION: After obtaining informed Consent from the patient, he was taken to the operating room where satisfactory general endotracheal anesthetic was induced. Appropriate monitoring lines placed, the patient's chest and upper abdomen were prepped and draped in a sterile fashion. A vertical incision was then made over this xiphoid process through the skin and subcutaneous tissue. The xiphoid process was identified and removed with Metzenbaum scissors. Using blunt scissors dissection, the anterior pericardium was exposed. Lateral pericardial fat was dissected using electrocautery. The anterior pericardium was exposed and opened with a 15 blade. Proximally 750 mL of serosanguineous fluid was withdrawn. The portion of the fluid was sent for CBC, chemistry (including glucose, LDH, and total protein), culture protheses including aerobic, anaerobic, fungal, and TB), and cytology. A 32 Maltese right angle chest tube was then placed along the diaphragm. The rectus abdominis fascia, subcutaneous tissue, and skin edges were reapproximated using running Vicryl sutures. Steri-Strips and a sterile dressing were applied. The patient was transferred to the PACU in satisfactory postoperative condition. There were no intraoperative complications, and instrument, needle, and sponge count were correct at end of operation.
--- NOTE | 2017-02-02 18:57 | Anesthesia Evaluation PreOp ---
Date of Encounter: 02/02/17 Time of Encounter: 16:30 - Past History Cardiac History: HTN, Hyperlipidemia, Other (Pericardial effusion) Pulmonary History: COPD [employer] AGENT History: TIA Anesthesia History: No Prior Anesthetic Complications Alcohol Use: occasionally Drug use: none Medications and Allergies Cyclobenzaprine [Flexeril] 10 mg PO TID 02/21/15 [History] Albuterol Neb [Proventil Neb] 2.5 mg IH TID 10/01/16 [History] Oxycodone HCl [Oxycontin] 10 mg PO TID PRN 10/01/16 [History] Oxymorphone HCl [Opana] 10 mg PO Q4H 10/16/16 [History] Phenazopyridine [Pyridium] 100 mg PO TID PRN #90 tablet 10/18/16 [Rx] Albuterol Sulfate [Albuterol Inhaler] 1 puff IH Q4H PRN 10/24/16 [History] LORazepam [Ativan] 0.5 mg PO Q6H PRN #90 tablet 10/24/16 [Rx] Lidocaine/Prilocaine CREAM [Emla] 5 gm TP AD #1 tube 10/24/16 [Rx] Loratadine [Claritin] 10 mg PO PRN PRN #60 capsule 10/24/16 [Rx] Magic Mouthwash 10 ml PO TID PRN #260 ml 10/24/16 [Rx] Omeprazole [PriLOSEC] 20 mg PO DAILY #90 cap 10/24/16 [Rx] Ondansetron [Zofran] 8 mg PO Q8HR PRN #90 tablet 10/24/16 [Rx] Prochlorperazine Maleate [Compazine] 10 mg PO Q6HR PRN #60 tablet 10/24/16 [Rx] Tamsulosin HCl [Flomax] 0.8 mg PO DAILY 10/24/16 [History] Loperamide [Imodium] 2 cap PO AD PRN #30 capsule 11/01/16 [Rx] Zolpidem [Ambien] 5 mg PO HS PRN #10 tablet 11/22/16 [Rx] Amitriptyline [Elavil] 25 mg PO HS #60 tablet 01/22/17 [Rx] amLODIPine [Norvasc] 5 mg PO DAILY 02/02/17 [History] Allergies penicillin V Adverse Reaction (Unknown, Verified 11/22/16 13:14) unknown Penicillins Adverse Reaction (Unknown, Verified 11/22/16 13:14) unknown vancomycin Adverse Reaction (Unknown, Verified 11/22/16 13:14) unknown Beta-lactam Adverse Reaction (Unknown, Uncoded 11/22/16 13:14) unknown Anesthesia Results - Labs 02/02/17 06:00 02/02/17 06:00 Anesthesia Exam NPO (# of Hours): 4 - HEENT Mallampati: II Teeth: Missing, Poor dentition Oral Opening: Greater than 3 - [employer]ENT LOC: Oriented - Cardiac Rhythm: Regular Murmur: None - Pulmonary Breath Sounds: bilateral Clear (Diminished, shallow) Respiratory Effort: Labored Anesthesia Assess/Plan ASA Score: 4, E Modified Alex Scale for Level of Consciousness: Cooperative, oriented, and tranquil Anesthetic Plan: General Autologous Blood: No Monitoring Plan: A-Line Recovery Plan: PACU
--- NOTE | 2017-02-02 19:00 | Anesthesia Evaluation Post Op ---
Date of Encounter: 02/02/17 Time of Encounter: 19:00 - Lungs Lungs: Clear Ascult./Percussion - Airway Airway: Non-obstructed - Cardiovascular Regular Rate, Baseline Rhythm - Mental Status Mental Status: Alert & Oriented, Answers Appropriately - Nausea Vomiting Nausea Vomiting: Not Present - Hydration Hydration: Ice chips - Discharge PostOp Status: Transfer Patient to floor
[2017-02-02] MEDS: Aztreonam 1,000 MG in D5% in Water (Mini-Bag+) 100 ML IVPB SCH (20:02)
[2017-02-02] MEDS: MethylPREDNISolone 40 MG/ML VIAL IVP SCH (20:04)
[2017-02-02] MEDS: *HR* LORazepam 0.5 MG TABLET PO PRN (20:05)
[2017-02-02] MEDS: 0.9 % Sodium Chloride 1,000 ML IVC SCH (20:07)
[2017-02-02] MEDS: *HR* OxyCODONE Immed Rel 5 MG TABLET PO PRN (22:09)
[2017-02-03 04:51] LABS: Hemoglobin 7.5 g/dL (12.9-16.9); Mean Corpuscular HGB Conc 34.1 g/dL (31.6-35.5); Mean Corpuscular Hemoglobin 36.2 pg (28.0-33.3); Mean Corpuscular Volume 106.3 fL (83.0-100.0); Mean Platelet Volume 10.5 fL (9.4-12.4); Nucleated Red Blood Cells 0.4 /100 WBC (0); Red Blood Count 2.07 M/mcL (4.19-5.50); Red Cell Distribution Width 23.2 % (11.5-14.5)
[2017-02-03 05:15] LABS: BUN/Creatinine Ratio 25 (6-26); Blood Urea Nitrogen 38 mg/dL (8-26); Calcium 8.9 mg/dL (8.6-10.8); Carbon Dioxide 29 mEq/L (19-29); Chloride 99 mEq/L (98-109); Glucose 133 mg/dL (70-99); LDL Cholesterol,Direct 73 mg/dL (< 100); Magnesium 2.1 mg/dL (1.6-2.6); Osmolality,Calculated 287 (280-300); Sodium 133 mEq/L (136-145); Total Protein 6.3 g/dL (6.0-8.3); eGFR For African Americans 55 (> 60); eGFR For Non-African Americans 45 (> 60)
[2017-02-03] MEDS: Ipratropium/Albuterol Neb 3 ML IH SCH ×5 (05:16→20:19)
[2017-02-03 05:20] LABS: Platelet Count 45 K/mcL (140-400)
[2017-02-03 05:21] LABS: Monocytes # 2.5 K/mcL (0.0-1.3); Neutrophils # 28.4 K/mcL (1.6-8.9)
[2017-02-03 05:22] LABS: Anisocytosis 3+ (Not Present); Macrocytosis Present (Not Present); Platelet Estimate Decreased (Normal); Toxic Granulation Present (Not Present)
[2017-02-03 05:23] LABS: Basophilic Stippling 1+ (Not Present); Microcytosis Present (Not Present); Polychromasia 2+ (Not Present)
[2017-02-03 05:35] LABS: % Iron Saturation 25 % (20-55); Iron 82 mcg/dL (65-175); Transferrin 237 mg/dL (174-364)
[2017-02-03 05:55] LABS: Ferritin 1596 ng/ml (22-275)
[2017-02-03] MEDS: Clindamycin 900 MG/50 ML 900 MG/50 ML IV.SOLN IVPB SCH (06:19)
[2017-02-03] MEDS: *HR* OxyCODONE Immed Rel 5 MG TABLET PO PRN ×2 (06:20→21:38)
[2017-02-03] MEDS: MethylPREDNISolone 40 MG/ML VIAL IVP SCH (06:20)
[2017-02-03] MEDS: Aztreonam 1,000 MG in D5% in Water (Mini-Bag+) 100 ML IVPB SCH (06:21)
[2017-02-03] MEDS: *HR* LORazepam 0.5 MG TABLET PO PRN ×3 (06:21→21:37)
[2017-02-03 06:57] LABS: INR 1.7; Prothrombin Time 18.3 Seconds (9.4-12.1)
--- NOTE | 2017-02-03 08:34 | Cardiothoracic Progress Note ---
Date of Encounter: 02/03/17 Time of Encounter: 08:32 - Assessment and plan (1) Primary cancer of right upper lobe of lung Current Visit: Yes Status: Chronic The assessment and plan as outlined above was discussed with the patient and/or family members who expressed understanding and agreement. All questions were answered. The patient is status post pericardial window. We will leave his chest tube another day or 2. - Subjective Interval history: The patient feels better and is anxious for discharge. Vital Signs, Last 4 Hours Temp Pulse Resp BP Pulse Ox 02/03/17 08:22 18 95 02/03/17 07:07 98.0 F 85 16 107/63 97 02/03/17 05:16 16 98 02/03/17 05:00 91 97 Oxgyen Flow Rate Oxygen Flow Rate (LPM) 6 Clinical Data, last 8 Hours Output, Chest Tube Drainage 140 Amount [#1] Output, Chest Tube Drainage 140 Amount [#1] Output, Urine Amount 650 Weight 02/01/17 02/02/17 02/03/17 23:59 23:59 23:59 Weight 83.1 kg Lungs are clear to percussion and auscultation. Heart is in a normal sinus rhythm with good heart tones. His incision is healing well without signs of infection. Chest tube drainage is minimal. - Labs 02/03/17 04:30 02/03/17 04:30 Lab Results, Last 24 hours 02/03/17 02/03/17 02/03/17 04:30 04:30 05:55 WBC 30.9 H* Hgb 7.5 L Hct 22.0 L Plt Count 45 L D INR 1.7 Sodium 133 L Potassium 5.0 H Chloride 99 Carbon Dioxide 29 BUN 38 H Creatinine 1.53 H Glucose 133 H Calcium 8.9 Magnesium 2.1 - VTE Documentation of Mechanical Device: Intermittent pneumatic compression device Consult Discharge Plan - Plan [facility]errals: [facility] [Primary Care Provider[facility] -
[2017-02-03] MEDS: *HR* OxyCODONE/APAP 5/325 TABLET PO PRN ×2 (08:41→13:11)
[2017-02-03 11:47] LABS: Folate 9.5 ng/mL (7.0-31.4)
[2017-02-03 11:48] LABS: Vitamin B12 > 2000 pg/mL (213-816)
[2017-02-03 12:11] LABS: Hematocrit 21.8 % (37.5-50.1); Hemoglobin 7.3 g/dL (12.9-16.9); Mean Corpuscular HGB Conc 33.5 g/dL (31.6-35.5); Mean Corpuscular Volume 107.4 fL (83.0-100.0); Mean Platelet Volume 10.4 fL (9.4-12.4); Red Blood Count 2.03 M/mcL (4.19-5.50); Red Cell Distribution Width 23.9 % (11.5-14.5)
[2017-02-03 12:12] LABS: Platelet Count 50 K/mcL (140-400)
[2017-02-03] MEDS ORDERED: Clindamycin 900 MG/50 ML 900 MG/50 ML IV.SOLN IVPB SCH (14:00)
[2017-02-03] MEDS ORDERED: Aztreonam 1,000 MG in D5% in Water (Mini-Bag+) 100 ML IVPB SCH (14:00)
[2017-02-03] MEDS ORDERED: MethylPREDNISolone 40 MG/ML VIAL IVP SCH (14:30)
--- NOTE | 2017-02-03 15:20 | Electrocardiograph Report ---
[place] [id number] Test Date: 2017-02-02 Pat Name: Renzo Doss Department: 104 Room: 2N11 Gender: M Intermediate Teacher: JOSAFAT : 1945 Requested By: Mal Field Order Number: [id number] Reading MD: Oskar Mai MD Measurements Intervals [place] Rate: 98 P: 22 PA: 128 QRS: 25 QRSD: 93 T: 32 QT: 370 QTc: 425 Interpretive Statements SINUS RHYTHM LOW QRS VOLTAGE IN PRECORDIAL LEADS Poor R wave progression Electronically Signed On 02-03-2017 15:19:20 EDT by Oskar Mai MD
--- NOTE | 2017-02-03 16:38 | Internal Med Progress Note ---
Date of Encounter: 02/03/17 Time of Encounter: 10:45 - Assessment and plan (1) Pericardial effusion with cardiac tamponade Current Visit: Yes Status: Acute Assessment and plan: Patient with a history of primary right lung cancer on ongoing chemotherapy who presented with a chief complaint of progressive shortness of breath. In the ED , EKG revealed STEMI. He underwent emergent left heart catheterization that was unremarkable. CT chest showed moderate pericardial effusion. Stat echocardiogram revealed moderate to large pericardial effusion with evidence of early tamponade. Patient underwent emergent pericardial window surgery with removal of 750 mL of serosanguineous fluid. Appreciate CTS and cardiology input. Follow-up pericardial effusion analysis. (2) Acute respiratory failure with hypoxemia Current Visit: Yes Status: Acute Assessment and plan: Secondary to pericardial effusion with early tamponade, moderate right pleural effusion, pneumonia and lung cancer. CT chest showed moderate pericardial effusion, moderate right pleural effusion, ill-defined mass in the right pulmonary hilum with extension into the upper and lower lobes. Patient has a right-sided chest tube. Appreciate CTS surgery input. Continue empiric antibiotics with IV levofloxacin, nebulizations, decrease IV glucocorticosteroids, and Mucinex. (3) Acute on chronic renal failure Current Visit: Yes Status: Chronic Assessment and plan: CKD3. Prerenal secondary to infection. Kidney function is slowly improving. Received gentle hydration. Close monitor. Avoid nephrotoxic agents as possible. Qualifiers: Acute renal failure type: unspecified Chronic kidney disease stage: stage 3 (moderate) Qualified Code(s): N17.9 - Acute kidney failure, unspecified; N18.3 - Chronic kidney disease, stage 3 (moderate) (4) Sepsis Current Visit: Yes Status: Acute Qualifiers: Sepsis type: sepsis due to unspecified organism Qualified Code(s): A41.9 - Sepsis, unspecified organism (5) Thrombocytopenia Current Visit: Yes Status: Acute Assessment and plan: Platelet was 27 on admission. She he received 6 units of platelet transfusion. Today, platelet is 50. (6) Bladder cancer Current Visit: Yes Status: Chronic Qualifiers: Bladder location: anterior wall Qualified Code(s): C67.3 - Malignant neoplasm of anterior wall of bladder (7) Pneumonia Current Visit: Yes Status: Acute Assessment and plan: Continue empiric antibiotics. Suspected postobstructive bacterial pneumonia. Qualifiers: Pneumonia type: due to unspecified organism Laterality: bilateral Lung location: lower lobe of lung Qualified Code(s): J18.9 - Pneumonia, unspecified organism (8) Primary cancer of right upper lobe of lung Current Visit: Yes Status: Chronic (9) Tobacco use disorder Current Visit: Yes Status: Chronic (10) Anemia Current Visit: Yes Status: Chronic Assessment and plan: Acute worsening of chronic anemia likely secondary to serosanguineous pleural and pericardial effusion. close monitor. Qualifiers: Anemia type: unspecified type Qualified Code(s): D64.9 - Anemia, unspecified (11) COPD exacerbation Current Visit: Yes Status: Acute Assessment and plan: Plan as in respiratory failure. - Subjective Interval history: Patient reports chest soreness and some shortness of breath. - Constitutional Vitals: Temp Pulse Resp BP Pulse Ox 97.8 F 91 14 138/89 95 02/03/17 16:02 02/03/17 16:02 02/03/17 16:02 02/03/17 16:02 02/03/17 16:02 General appearance: Present: cooperative, A&O X 3, pleasant, no acute distress, answers questions appropriately - Neck Neck exam general surgery: Present: supple, trachea midline. Absent: lymphadenopathy - Respiratory Respiratory exam: Present: wheezes - Cardiovascular Cardiovascular exam: Present: tachycardia Additional comments: Subxiphoid pericardial window dressing. right-sided chest tube with a serisanguinolent drainage. - GI/Abdominal GI/Abdominal exam: Present: normal bowel sounds, soft. Absent: distended, tenderness - Extremities Exam Extremities exam: Present: pedal edema (1+ lower extremity edema) - Back Exam Back exam: Absent: CVA tenderness (L), CVA tenderness (R) - Neurological Exam Neurological exam: Present: alert, oriented X3, no focal deficits, strengths equal and symetr throughout. Absent: facial droop, speech deficit Internal Medicine: Result - Labs CBC & Chem 7: 02/03/17 11:50 02/03/17 11:50 Labs: Short CBC 02/03/17 02/03/17 Range/Units 04:30 11:50 WBC 30.9 H* 28.3 H (4.3-11.1) K/mcL Hgb 7.5 L 7.3 L (12.9-16.9) g/dL Hct 22.0 L 21.8 L (37.5-50.1) % Plt Count 45 L D 50 L (140-400) K/mcL Neutrophils # 28.4 H (1.6-8.9) K/mcL BMP 02/03/17 02/03/17 04:30 11:50 Sodium 133 L Potassium 5.0 H 4.8 H Chloride 99 Carbon Dioxide 29 BUN 38 H Creatinine 1.53 H Glucose 133 H Calcium 8.9 - ABG Interpretation ABG results: PT/INR, D-dimer PT 18.3 Seconds (9.4-12.1) H 02/03/17 05:55 - Impressions Impressions Chest X-Ray 02/02/17 18:12 IMPRESSION: 1. New pericardial drainage catheter with decreased size of the now normal cardiac contour, suggesting decreased pericardial effusion. 2. New right perihilar pulmonary edema. Otherwise unchanged pulmonary vascular congestion. 3. Unchanged prominence of the right hilum likely related to treated malignancy. D/ / Dano Rosado MD / Dano Rosado MD Interpreting Provider: Dano Rosado MD Chest X-Ray 02/03/17 06:00 IMPRESSION: Progressive right lower lobe opacification which may represent worsening pneumonia versus asymmetric pulmonary edema. Mild vascular congestion. Stable small right pleural effusion. D/ / 02/03/2017 08:51:13 Inocencio Maza MD / ayaan Interpreting Provider: Inocencio Maza MD - VTE Documentation of Mechanical Device: Graduated compression elastic hosiery Consult Discharge Plan - Plan Referrals: Alon Garg, RN CVICU [Advanced Practice Nurse] - (OFFICE WILL CALL PATIENT AT HOME WITH THEIR APPOINTMENT) Delaney Manley MD [Partnered Physician] - 03/06/17 1:15 pm [place],PCP [Primary Care Provider] - 02/11/17 11:15 am (THIS IS AT THE DISCHARGE CLINIC WITH DR. POTTER)
[2017-02-03] MEDS: Budesonide Neb 0.25 MG/2 ML IH SCH (20:19)
[2017-02-04] MEDS: Ipratropium/Albuterol Neb 3 ML IH SCH ×7 (00:13→23:20)
[2017-02-04] MEDS: *HR* OxyCODONE Immed Rel 5 MG TABLET PO PRN ×2 (04:32→20:51)
[2017-02-04 06:12] LABS: Basophils % 0.1 %; INR 1.5; Monocytes % 12.9 %; Nucleated Red Blood Cells 0.7 /100 WBC (0); Prothrombin Time 16.4 Seconds (9.4-12.1)
[2017-02-04 06:14] LABS: Hematocrit 21.5 % (37.5-50.1); Immature Granulocytes % 4.2 % (0-4); Immature Platelets 6.4 % (1.1-6.1); Lymphocytes % 3.9 %; Mean Corpuscular HGB Conc 32.6 g/dL (31.6-35.5); Mean Corpuscular Hemoglobin 35.9 pg (28.0-33.3); Mean Corpuscular Volume 110.3 fL (83.0-100.0); Mean Platelet Volume 10.1 fL (9.4-12.4); Monocytes # 3.3 K/mcL (0.0-1.3); Red Blood Count 1.95 M/mcL (4.19-5.50); Red Cell Distribution Width 24.1 % (11.5-14.5); Segmented Neutrophils % 78.9 %
[2017-02-04 06:29] LABS: Albumin 3.3 g/dL (3.5-5.0); Albumin/Globulin Ratio 1.1 (1.1-2.2); Bilirubin,Direct 0.2 mg/dL (0.0-0.5); Bilirubin,Indirect 0.2 mg/dL (0.0-1.2); Bilirubin,Total 0.4 mg/dL (0.2-1.2); Calcium 8.9 mg/dL (8.6-10.8); Globulin 2.9 g/dL (2.4-3.5); Phosphorous 3.9 mg/dL (2.3-4.7); Potassium 4.3 mEq/L (3.5-4.5); Total Protein 6.2 g/dL (6.0-8.3)
[2017-02-04 07:11] LABS: Neutrophils # 20.3 K/mcL (1.6-8.9); Platelet Count 65 K/mcL (140-400)
[2017-02-04 07:12] LABS: Anisocytosis 2+ (Not Present); Macrocytosis Present (Not Present); Platelet Estimate Decreased (Normal)
[2017-02-04 07:13] LABS: Polychromasia 2+ (Not Present)
[2017-02-04] MEDS: Budesonide Neb 0.25 MG/2 ML IH SCH ×2 (07:44→20:13)
[2017-02-04] MEDS: MethylPREDNISolone 40 MG/ML VIAL IVP SCH ×2 (07:59→14:05)
--- NOTE | 2017-02-04 08:33 | Cardiothoracic Progress Note ---
Date of Encounter: 02/04/17 Time of Encounter: 08:31 - Assessment and plan (1) Pericardial effusion with cardiac tamponade Current Visit: Yes Status: Acute The patient is recovering well from his subxiphoid pericardial window. The chest tube drainage has decreased. The pericardial fluid cultures showed no growth at 24 hours. The cytology is pending. The patient's chest tube should continue on suction for at least another 24 hours. The assessment and plan as outlined above was discussed with the patient and/or family members who expressed understanding and agreement. All questions were answered. (2) Pericardial effusion Current Visit: Yes Status: Acute The assessment and plan as outlined above was discussed with the patient and/or family members who expressed understanding and agreement. All questions were answered. - Subjective Procedure(s) Performed: POD#2 S/P Subxiphoid pericardial window Interval history: The patient is sitting in a chair at the bedside. He has no complaints. Vital Signs, Last 4 Hours Temp Pulse Resp BP Pulse Ox 02/04/17 08:08 86 94 02/04/17 07:46 18 94 02/04/17 07:10 97.6 F 90 16 103/64 94 Oxgyen Flow Rate Oxygen Flow Rate (LPM) 3 Clinical Data, last 8 Hours Output, Chest Tube Drainage 25 Amount [#1] Output, Chest Tube Drainage 20 Amount [#1] Output, Urine Amount 75 Output, Urine Amount 200 Output, Urine Amount 650 Output, Urine Amount 200 Weight 02/02/17 02/03/17 02/04/17 23:59 23:59 23:59 Weight 83.1 kg - Physical Examination General: Conversant, No Apparent Distress Neck: No JVD, Normal carotid pulses Cardiac: Reg Rate and Rhythm, Normal S1 and S2, No Murmur Incision: No signs of infection, Dry/intact dressing Chest tubes: Minimal drainage, Other (No air leak.) Lungs: Other (Wheezes and rhonchi bilaterally) Neuro: Alert and responsive, No focal deficits noted Vascular: Normal capillary refill Musculoskeletal: No Chest Wall Tenderness Extremities: No Clubbing, No Cyanosis, No Edema - Labs 02/04/17 04:45 02/04/17 04:45 Lab Results, Last 24 hours 02/03/17 02/03/17 02/04/17 11:50 11:50 04:45 WBC 28.3 H 25.7 H Hgb 7.3 L 7.0 L Hct 21.8 L 21.5 L Plt Count 50 L 65 L INR Sodium Potassium 4.8 H Chloride Carbon Dioxide BUN Creatinine Glucose Calcium Magnesium Total Bilirubin AST ALT Alkaline Phosphatase 02/04/17 02/04/17 04:45 04:45 WBC Hgb Hct Plt Count INR 1.5 Sodium 134 L Potassium 4.3 Chloride 99 Carbon Dioxide 29 BUN 39 H Creatinine 1.48 H Glucose 86 Calcium 8.9 Magnesium 2.0 Total Bilirubin 0.4 AST 50 H ALT 121 H Alkaline Phosphatase 136 H - VTE Documentation of Mechanical Device: Graduated compression elastic hosiery Consult Discharge Plan - Plan Referrals: Alon Garg, AUTOM[employer]IC CIGAR WRAPPER TENDER [Advanced Practice Nurse] - (OFFICE WILL CALL PATIENT AT HOME WITH THEIR APPOINTMENT) Delaney Manley MD [Partnered Physician] - 03/06/17 1:15 pm [place],PCP [Primary Care Provider] - 02/11/17 11:15 am (THIS IS AT THE DISCHARGE CLINIC WITH DR. POTTER)
[2017-02-04] MEDS ORDERED: Albuterol 2.5 MG/3 ML NEBULIZER IH PRN (09:13)
[2017-02-04] MEDS: Levofloxacin 750 MG/150 ML 750 MG/150 ML BAG IVPB SCH (09:48)
[2017-02-04] MEDS ORDERED: 0.9 % Sodium Chloride 250 ML ONE (13:26)
[2017-02-04] MEDS: Clindamycin 900 MG/50 ML 900 MG/50 ML IV.SOLN IVPB SCH (14:05)
[2017-02-04] MEDS: 0.9 % Sodium Chloride 1,000 ML IVC SCH (14:06)
[2017-02-04] MEDS: Benzonatate 100 MG CAPSULE PO PRN ×2 (15:03→22:58)
--- NOTE | 2017-02-04 15:42 | Internal Med Progress Note ---
Date of Encounter: 02/04/17 Time of Encounter: 10:30 - Assessment and plan (1) Pericardial effusion with cardiac tamponade Current Visit: Yes Status: Acute Assessment and plan: Patient with a history of primary right lung cancer on ongoing chemotherapy who presented with a chief complaint of progressive shortness of breath. In the ED , EKG revealed STEMI. He underwent emergent left heart catheterization that was unremarkable. CT chest showed moderate pericardial effusion. Stat echocardiogram revealed moderate to large pericardial effusion with evidence of early tamponade. Patient underwent emergent pericardial window surgery with removal of 750 mL of serosanguineous fluid. Appreciate CTS and cardiology input. Follow-up pericardial effusion analysis. (2) Acute respiratory failure with hypoxemia Current Visit: Yes Status: Acute Assessment and plan: Secondary to pericardial effusion with early tamponade, moderate right pleural effusion, pneumonia and lung cancer. CT chest showed moderate pericardial effusion, moderate right pleural effusion, ill-defined mass in the right pulmonary hilum with extension into the upper and lower lobes. CTS team input. Continue empiric antibiotics with IV levofloxacin, nebulizations, decrease IV glucocorticosteroids, and Mucinex. (3) Acute on chronic renal failure Current Visit: Yes Status: Chronic Assessment and plan: CKD3. Prerenal secondary to infection. Kidney function is slowly improving. Received gentle hydration. Close monitor. Avoid nephrotoxic agents as possible. Qualifiers: Acute renal failure type: with acute renal cortical necrosis Chronic kidney disease stage: stage 3 (moderate) Qualified Code(s): N17.1 - Acute kidney failure with acute cortical necrosis; N18.3 - Chronic kidney disease, stage 3 (moderate) (4) Sepsis Current Visit: Yes Status: Acute Assessment and plan: source could be post-obstructive pna. continue empiric abx Qualifiers: Sepsis type: sepsis due to unspecified organism Qualified Code(s): A41.9 - Sepsis, unspecified organism (5) Thrombocytopenia Current Visit: Yes Status: Acute Assessment and plan: Platelet was 27 on admission. She he received 6 units of platelet transfusion. Today, platelet is 65 (6) Bladder cancer Current Visit: Yes Status: Chronic Qualifiers: Bladder location: anterior wall Qualified Code(s): C67.3 - Malignant neoplasm of anterior wall of bladder (7) Pneumonia Current Visit: Yes Status: Acute Assessment and plan: Continue empiric antibiotics. Suspected postobstructive bacterial pneumonia. Qualifiers: Pneumonia type: due to unspecified organism Laterality: bilateral Lung location: lower lobe of lung Qualified Code(s): J18.9 - Pneumonia, unspecified organism (8) Primary cancer of right upper lobe of lung Current Visit: Yes Status: Chronic (9) Tobacco use disorder Current Visit: Yes Status: Chronic (10) Anemia Current Visit: Yes Status: Chronic Assessment and plan: Acute worsening of chronic anemia likely secondary to serosanguineous pleural and pericardial effusion. Hemoglobin today 7. Transfuse 1 unit packed red cells. close monitor. Qualifiers: Anemia type: unspecified type Qualified Code(s): D64.9 - Anemia, unspecified (11) COPD exacerbation Current Visit: Yes Status: Acute Assessment and plan: Plan as in respiratory failure. - Subjective Interval history: Patient reports dry cough and a mild chest soreness.. - Constitutional Vitals: Temp Pulse Resp BP Pulse Ox 97.7 F 89 16 119/65 96 02/04/17 14:42 02/04/17 14:42 02/04/17 14:42 02/04/17 14:42 02/04/17 14:42 General appearance: Present: cooperative, A&O X 3, pleasant, no acute distress, answers questions appropriately - Neck Neck exam general surgery: Present: supple, trachea midline. Absent: lymphadenopathy - Respiratory Respiratory exam: Present: wheezes - Cardiovascular Cardiovascular exam: Present: RRR - GI/Abdominal GI/Abdominal exam: Present: normal bowel sounds, soft. Absent: distended, tenderness Additional comments: Right groin: Diffuse erythema on thigh. No hematoma. No bruit. - Extremities Exam Extremities exam: Present: pedal edema (2+ lower extremity edema.) - Back Exam Back exam: Absent: CVA tenderness (L), CVA tenderness (R) - Neurological Exam Neurological exam: Present: alert, oriented X3, no focal deficits, strengths equal and symetr throughout. Absent: facial droop, speech deficit - Skin Skin exam: Absent: rash Internal Medicine: Result - Labs CBC & Chem 7: 02/04/17 04:45 02/04/17 04:45 Labs: Short CBC 02/04/17 Range/Units 04:45 WBC 25.7 H (4.3-11.1) K/mcL Hgb 7.0 L (12.9-16.9) g/dL Hct 21.5 L (37.5-50.1) % Plt Count 65 L (140-400) K/mcL Neutrophils # 20.3 H (1.6-8.9) K/mcL BMP 02/04/17 04:45 Sodium 134 L Potassium 4.3 Chloride 99 Carbon Dioxide 29 BUN 39 H Creatinine 1.48 H Glucose 86 Calcium 8.9 Liver Function 02/04/17 Range/Units 04:45 Total Bilirubin 0.4 (0.2-1.2) mg/dL Direct Bilirubin 0.2 (0.0-0.5) mg/dL AST 50 H (5-34) Units/L ALT 121 H (0-55) Units/L Alkaline Phosphatase 136 H (38-126) Units/L Albumin 3.3 L (3.5-5.0) g/dL - ABG Interpretation ABG results: PT/INR, D-dimer PT 16.4 Seconds (9.4-12.1) H 02/04/17 04:45 - VTE Documentation of Mechanical Device: Graduated compression elastic hosiery Consult Discharge Plan - Plan Referrals: Alon Garg, ACCOUNTS ADMINISTRATOR [Advanced Practice Nurse] - (OFFICE WILL CALL PATIENT AT HOME WITH THEIR APPOINTMENT) Delaney Manley MD [Partnered Physician] - 03/06/17 1:15 pm [facility] [Primary Care Provider] - 02/11/17 11:15 am (THIS IS AT THE DISCHARGE CLINIC WITH DR. POTTER)
[2017-02-04] MEDS: *HR* LORazepam 0.5 MG TABLET PO PRN (20:51)
[2017-02-05] MEDS: Ipratropium/Albuterol Neb 3 ML IH SCH ×3 (04:28→11:36)
[2017-02-05 05:11] LABS: Hemoglobin 7.5 g/dL (12.9-16.9); Red Cell Distribution Width 26.5 % (11.5-14.5)
[2017-02-05 05:13] LABS: Hematocrit 22.8 % (37.5-50.1); Mean Corpuscular HGB Conc 32.9 g/dL (31.6-35.5); Mean Corpuscular Hemoglobin 35.2 pg (28.0-33.3); Mean Platelet Volume 9.9 fL (9.4-12.4); Red Blood Count 2.13 M/mcL (4.19-5.50)
[2017-02-05 05:33] LABS: BUN/Creatinine Ratio 26 (6-26); Blood Urea Nitrogen 29 mg/dL (8-26); Calcium 8.6 mg/dL (8.6-10.8); Carbon Dioxide 30 mEq/L (19-29); Chloride 104 mEq/L (98-109); Glucose 89 mg/dL (70-99); Osmolality,Calculated 291 (280-300); Potassium 4.3 mEq/L (3.5-4.5); Sodium 138 mEq/L (136-145); eGFR For African Americans > 60 (> 60); eGFR For Non-African Americans > 60 (> 60)
[2017-02-05 05:44] LABS: Platelet Count 82 K/mcL (140-400)
[2017-02-05 05:59] LABS: Lymphocytes # 2.8 K/mcL (0.6-4.6); Monocytes # 4.7 K/mcL (0.0-1.3); Neutrophils # 8.1 K/mcL (1.6-8.9); Platelet Estimate Marked Decrease (Normal)
--- NOTE | 2017-02-05 07:27 | Cardiothoracic Progress Note ---
Date of Encounter: 02/05/17 Time of Encounter: 07:24 - Assessment and plan (1) Pericardial effusion with cardiac tamponade Current Visit: Yes Status: Acute The patient is recovering well from his subxiphoid pericardial window. The chest tube drainage has decreased. The pericardial fluid cultures showed no growth at 24 hours. The cytology is still pending. The chest tube was removed. He may be discharged home later today. The assessment and plan as outlined above was discussed with the patient and/or family members who expressed understanding and agreement. All questions were answered. (2) Pericardial effusion Current Visit: Yes Status: Acute The assessment and plan as outlined above was discussed with the patient and/or family members who expressed understanding and agreement. All questions were answered. - Subjective Procedure(s) Performed: POD#3 S/P Subxiphoid pericardial window Interval history: The patient is sitting in a chair at the bedside. He has no complaints. Vital Signs, Last 4 Hours Pulse Resp Pulse Ox 02/05/17 04:30 83 02/05/17 04:28 16 96 Oxgyen Flow Rate Oxygen Flow Rate (LPM) 3 Clinical Data, last 8 Hours Output, Chest Tube Drainage 34 Amount [#1] Output, Urine Amount 350 Output, Urine Amount 400 Weight 02/03/17 02/04/17 02/05/17 23:59 23:59 23:59 Weight 83.1 kg 83.1 kg - Physical Examination General: Conversant, No Apparent Distress Neck: No JVD, Normal carotid pulses Cardiac: Reg Rate and Rhythm, Normal S1 and S2, No Murmur Incision: No signs of infection, Dry/intact dressing Chest tubes: Minimal drainage, Other (No air leak.) Lungs: Other (Wheezes and rhonchi bilaterally.) Neuro: Alert and responsive, No focal deficits noted Vascular: Normal capillary refill Musculoskeletal: No Chest Wall Tenderness Extremities: No Clubbing, No Cyanosis, No Edema - Labs 02/05/17 04:25 02/05/17 04:25 Lab Results, Last 24 hours 02/05/17 02/05/17 04:25 04:25 WBC 15.6 H Hgb 7.5 L Hct 22.8 L Plt Count 82 L Sodium 138 Potassium 4.3 Chloride 104 Carbon Dioxide 30 H BUN 29 H D Creatinine 1.12 Glucose 89 Calcium 8.6 Magnesium 2.0 - VTE Documentation of Mechanical Device: Graduated compression elastic hosiery Consult Discharge Plan - Plan Referrals: Alon Garg, TERRAZZO POLISHER [Advanced Practice Nurse] - (OFFICE WILL CALL PATIENT AT HOME WITH THEIR APPOINTMENT) Delaney Manley MD [Partnered Physician] - 03/06/17 1:15 pm [facility]PCP [Primary Care Provider] - 02/11/17 11:15 am (THIS IS AT THE DISCHARGE CLINIC WITH DR. POTTER)
[2017-02-05] MEDS: Budesonide Neb 0.25 MG/2 ML IH SCH (08:16)
[2017-02-05 08:22] VITALS: BP 131/63
[2017-02-05] MEDS: MethylPREDNISolone 40 MG/ML VIAL IVP SCH (08:53)
--- NOTE | 2017-02-05 10:19 | Discharge Summary ---
Date of Encounter: 02/05/17 Time of Encounter: 10:18 - Discharge Diagnosis (1) Pericardial effusion with cardiac tamponade Priority: Primary Status: Acute (2) Acute respiratory failure with hypoxemia Priority: Primary Status: Acute (3) Acute on chronic renal failure Priority: Primary Status: Acute Qualifiers: Acute renal failure type: with acute renal cortical necrosis Chronic kidney disease stage: stage 3 (moderate) Qualified Code(s): N17.1 - Acute kidney failure with acute cortical necrosis; N18.3 - Chronic kidney disease, stage 3 (moderate) (4) Sepsis Priority: Primary Status: Resolved Qualifiers: Sepsis type: sepsis due to unspecified organism Qualified Code(s): A41.9 - Sepsis, unspecified organism (5) Thrombocytopenia Priority: Primary Status: Acute (6) Bladder cancer Priority: Secondary Status: Chronic Qualifiers: Bladder location: anterior wall Qualified Code(s): C67.3 - Malignant neoplasm of anterior wall of bladder (7) Pneumonia Priority: Primary Status: Acute Qualifiers: Pneumonia type: due to unspecified organism Laterality: bilateral Lung location: lower lobe of lung Qualified Code(s): J18.9 - Pneumonia, unspecified organism (8) Primary cancer of right upper lobe of lung Priority: Secondary Status: Chronic (9) Tobacco use disorder Priority: Secondary Status: Chronic (10) Anemia Priority: Secondary Status: Chronic Qualifiers: Anemia type: unspecified type Qualified Code(s): D64.9 - Anemia, unspecified (11) COPD exacerbation Priority: Primary Status: Acute - Discharge Medications Prescriptions: Ipratropium/Albuterol Neb [Duoneb] 3 ml IH [id number] #30 inh Benzonatate [Tessalon] 100 mg PO TID PRN #20 PRN Reason: COUGH- FIRST LINE Budesonide/Formoterol 160/4.5 [Symbicort 160/4.5] 1 puff IH BIDR #1 hfa.aer.ad Levofloxacin [Levaquin] 500 mg PO DAILY #3 tablet predniSONE [PredniSONE] 40 mg PO DAILY #6 tablet Home Medications: Cyclobenzaprine [Flexeril] 10 mg PO TID 02/21/15 [History] Oxycodone HCl [Oxycontin] 10 mg PO TID PRN 10/01/16 [History] Oxymorphone HCl [Opana] 10 mg PO Q4H 10/16/16 [History] Phenazopyridine [Pyridium] 100 mg PO TID PRN #90 tablet 10/18/16 [Rx] Albuterol Sulfate [Albuterol Inhaler] 1 puff IH Q4H PRN 10/24/16 [History] LORazepam [Ativan] 0.5 mg PO Q6H PRN #90 tablet 10/24/16 [Rx] Lidocaine/Prilocaine CREAM [Emla] 5 gm TP AD #1 tube 10/24/16 [Rx] Loratadine [Claritin] 10 mg PO PRN PRN #60 capsule 10/24/16 [Rx] Magic Mouthwash 10 ml PO TID PRN #260 ml 10/24/16 [Rx] Omeprazole [PriLOSEC] 20 mg PO DAILY #90 cap 10/24/16 [Rx] Ondansetron [Zofran] 8 mg PO Q8HR PRN #90 tablet 10/24/16 [Rx] Prochlorperazine Maleate [Compazine] 10 mg PO Q6HR PRN #60 tablet 10/24/16 [Rx] Tamsulosin HCl [Flomax] 0.8 mg PO DAILY 10/24/16 [History] Loperamide [Imodium] 2 cap PO AD PRN #30 capsule 11/01/16 [Rx] Zolpidem [Ambien] 5 mg PO HS PRN #10 tablet 11/22/16 [Rx] Amitriptyline [Elavil] 25 mg PO HS #60 tablet 01/22/17 [Rx] Albuterol Neb [Proventil Neb] 2.5 mg IH TID PRN #0 02/05/17 [Rx] Benzonatate [Tessalon] 100 mg PO TID PRN #20 02/05/17 [Rx] Budesonide/Formoterol 160/4.5 [Symbicort 160/4.5] 1 puff IH BIDR #1 hfa.aer.ad 02/05/17 [Rx] Ipratropium/Albuterol Neb [Duoneb] 3 ml IH [id number] #30 inh 02/05/17 [Rx] Levofloxacin [Levaquin] 500 mg PO DAILY #3 tablet 02/05/17 [Rx] predniSONE [PredniSONE] 40 mg PO DAILY #6 tablet 02/05/17 [Rx] Allergies/Adverse Reactions: Allergies penicillin V Adverse Reaction (Unknown, Verified 11/22/16 13:14) unknown Penicillins Adverse Reaction (Unknown, Verified 11/22/16 13:14) unknown vancomycin Adverse Reaction (Unknown, Verified 11/22/16 13:14) unknown Beta-lactam Adverse Reaction (Unknown, Uncoded 11/22/16 13:14) unknown Procedures/tests Complete & Pending: Procedures Performed prior 72 hours Category Date Time Status CT chest w/o contrast [CT chest wo con] [CT] Routine Cat Scan 02/02/17 10:39 Completed EV echocardiogram Stat Y 02/02/17 11:51 Completed Date of admission: 02/02/17 05:42 [facility] care physician: [facility] Consults: 02/02/17 07:42 Consult to Hospitalist [CONS] Routine Consulting Provider: Hospitalist Ran Reason for Consult: transfer to hospitalist service. ROLANDA and COPD/PNA Call Completed: Yes 02/02/17 13:50 Consult to Cardiothoracic Surgery [CONS] Urgent Consulting Provider: Cardiothoracic Surgery Raiza Reason for Consult: pericardial window Call Completed: Yes 02/03/17 10:48 Consult to Occupational Therapy [CONS] Routine Comment: Evaluate, develop and implement POC Reason for Consult: discharge planning, living at home with family Consult to Physical Therapy [CONS] Routine Comment: Evaluate, develop and implement POC Reason for Consult: discharge planning, living at home with family Consult to Transit Driver [CONS] Routine Reason for SW Consult: discharge planning - Patient Status Disposition: Home, Self-Care Condition: Good Functional capacity at discharge: uses cane/walker Overall status at discharge: patient is not back to baseline - Discharge Instructions Instructions: Levofloxacin (By mouth), Ipratropium/Albuterol (By breathing), Prednisolone (By mouth), Budesonide/Formoterol (By breathing), Preventing Infections (GEN), Using Oxygen at Home (DC), Pericardial Effusion (DC) Follow Up With: Alon Garg, FILLING OPERATOR [Advanced Practice Nurse] - (OFFICE WILL CALL PATIENT AT HOME WITH THEIR APPOINTMENT) Delaney [email or web address] MD [Partnered Physician] - 03/06/17 1:15 pm [place],PCP [Primary Care Provider] - 02/11/17 11:15 am (THIS IS AT THE DISCHARGE CLINIC WITH DR. POTTER) Additional Instructions: Please check her blood pressure twice daily, same time in the morning and in the evening. Write down numbers and bring record doctor's appointment. - Diet and Activity Activity: ambulate only with your walker, wear oxygen at all times (2L) Diet: low fat, low cholesterol, low salt diet, other (fluid restriction 1.6 liters per day) Interval History: Patient feels better this morning. He is eager to go home. Hospital course: Mr. Doss is a 71 year old male with past medical history of primary right lung cancer on ongoing chemotherapy who presented with a chief complaint of progressive shortness of breath. In the ED, EKG revealed STEMI. He underwent emergent left heart catheterization that was unremarkable. CT chest showed moderate pericardial effusion. Stat echocardiogram revealed moderate to large pericardial effusion with evidence of early tamponade. Patient underwent emergent pericardial window surgery with removal of 750 mL of serosanguineous fluid. He received transfusion of platelets and FFP is due to severe thrombocytopenia (plt of 27) and elevated INR. Platelets at discharge were 65. Patient presented with acute respiratory failure secondary to pericardial effusion with early tamponade, moderate right pleural effusion, pneumonia, and COPD exacerbation. CT chest also showed ill-defined mass in the right pulmonary hilum with extension into the upper and lower lobes, moderate right pleural effusion. Patient was started on empiric antibiotics with IV Levaquin, nebulizations, IV glucocorticoids mucinous with clinical improvement. At discharge, patient SaO2 dropped to 85% while walking and talking. He was instructed to use oxygen continuously. I stopped his home dose amlodipine due to low normal BP. She was instructed to check his blood pressure daily. Plan: levaquin. CT chest in 4-6 weeks. Follow-up in CTS clinic, follow up with his oncologist. Repeat BMP in 1 week. - Time Spent with Patient Total time spent providing and/or coordinating discharge services: - Constitutional Vitals: Temp Pulse Resp BP Pulse Ox 98.4 F 84 18 131/63 94 02/05/17 08:18 02/05/17 08:18 02/05/17 08:19 02/05/17 08:18 02/05/17 10:00 General appearance: Present: cooperative, A&O X 3, pleasant, no acute distress, answers questions appropriately - Neck Neck exam general surgery: Present: supple, trachea midline. Absent: lymphadenopathy - Respiratory Respiratory exam: Present: CTAB - Cardiovascular Cardiovascular exam: Present: RRR - GI/Abdominal GI/Abdominal exam: Present: normal bowel sounds, soft. Absent: distended, tenderness - Extremities Exam Extremities exam: Present: pedal edema (1+ le edema) - Back Exam Back exam: Absent: CVA tenderness (L), CVA tenderness (R) - Neurological Exam Neurological exam: Present: alert, oriented X3, no focal deficits, strengths equal and symetr throughout. Absent: facial droop, speech deficit - VTE Documentation of Mechanical Device: Graduated compression elastic hosiery
[2017-02-05] MEDS ORDERED: Levofloxacin 750 MG/150 ML 750 MG/150 ML BAG IVPB SCH (13:00)
--- NOTE | 2017-02-06 08:16 | Physician Discharge Referral ---
Home Health/Hosp Referral Info Transfer to: Home Health Attending Provider: patience Provider in Charge Post Discharge: PCP - Diagnosis (1) Pericardial effusion with cardiac tamponade Status: Acute (2) Acute respiratory failure with hypoxemia Status: Acute (3) Acute on chronic renal failure Status: Acute (4) Sepsis Status: Resolved (5) Thrombocytopenia Status: Acute (6) Bladder cancer Status: Chronic (7) Pneumonia Status: Acute (8) Primary cancer of right upper lobe of lung Status: Chronic (9) Tobacco use disorder Status: Chronic (10) Anemia Status: Chronic (11) COPD exacerbation Status: Acute - Respiratory Orders Oxygen / L per min (2-4) Smoking Cessation: Smoking cessation has been advised. For more information, call the [employer] Quit Line at 4-661-OXXP-NOW. - Diet/Nutrition Diet/Nutrition Orders: No Added Salt (MAHI), Cardiac - Activity Activity Orders: Walker - Services Needed Following services are medically necessary services: Physical Therapy, Occupational Therapy - Transfer Medications Prescriptions: Ipratropium/Albuterol Neb [Duoneb] 3 ml IH [id number] #30 inh Benzonatate [Tessalon] 100 mg PO TID PRN #20 PRN Reason: COUGH- FIRST LINE Budesonide/Formoterol 160/4.5 [Symbicort 160/4.5] 1 puff IH BIDR #1 hfa.aer.ad Levofloxacin [Levaquin] 500 mg PO DAILY #3 tablet predniSONE [PredniSONE] 40 mg PO DAILY #6 tablet Home Medications: Cyclobenzaprine [Flexeril] 10 mg PO TID 02/21/15 [History] Oxycodone HCl [Oxycontin] 10 mg PO TID PRN 10/01/16 [History] Oxymorphone HCl [Opana] 10 mg PO Q4H 10/16/16 [History] Phenazopyridine [Pyridium] 100 mg PO TID PRN #90 tablet 10/18/16 [Rx] Albuterol Sulfate [Albuterol Inhaler] 1 puff IH Q4H PRN 10/24/16 [History] LORazepam [Ativan] 0.5 mg PO Q6H PRN #90 tablet 10/24/16 [Rx] Lidocaine/Prilocaine CREAM [Emla] 5 gm TP AD #1 tube 10/24/16 [Rx] Loratadine [Claritin] 10 mg PO PRN PRN #60 capsule 10/24/16 [Rx] Magic Mouthwash 10 ml PO TID PRN #260 ml 10/24/16 [Rx] Omeprazole [PriLOSEC] 20 mg PO DAILY #90 cap 10/24/16 [Rx] Ondansetron [Zofran] 8 mg PO Q8HR PRN #90 tablet 10/24/16 [Rx] Prochlorperazine Maleate [Compazine] 10 mg PO Q6HR PRN #60 tablet 10/24/16 [Rx] Tamsulosin HCl [Flomax] 0.8 mg PO DAILY 10/24/16 [History] Loperamide [Imodium] 2 cap PO AD PRN #30 capsule 11/01/16 [Rx] Zolpidem [Ambien] 5 mg PO HS PRN #10 tablet 11/22/16 [Rx] Amitriptyline [Elavil] 25 mg PO HS #60 tablet 01/22/17 [Rx] Albuterol Neb [Proventil Neb] 2.5 mg IH TID PRN #0 02/05/17 [Rx] Benzonatate [Tessalon] 100 mg PO TID PRN #20 02/05/17 [Rx] Budesonide/Formoterol 160/4.5 [Symbicort 160/4.5] 1 puff IH BIDR #1 hfa.aer.ad 02/05/17 [Rx] Ipratropium/Albuterol Neb [Duoneb] 3 ml IH [id number] #30 inh 02/05/17 [Rx] Levofloxacin [Levaquin] 500 mg PO DAILY #3 tablet 02/05/17 [Rx] predniSONE [PredniSONE] 40 mg PO DAILY #6 tablet 02/05/17 [Rx] Allergies/Adverse Reactions: Allergies penicillin V Adverse Reaction (Unknown, Verified 11/22/16 13:14) unknown Penicillins Adverse Reaction (Unknown, Verified 11/22/16 13:14) unknown vancomycin Adverse Reaction (Unknown, Verified 11/22/16 13:14) unknown Beta-lactam Adverse Reaction (Unknown, Uncoded 11/22/16 13:14) unknown Certification: Further, I certify that my clinical findings support that this patient is homebound (i.e. absences from home require considerable and taxing effort and are for medical reasons or alevism services or infrequently or short duration when for other reasons) because: Homebound Reason: Patient requires assistance of a person or device to safely leave home, Leaving home requires considerable and taxing effort due to condition, Severity of cardiac or pulmonary status limits activity tolerance Attestation: My signature below is to certify that this patient is under my care and that I, or nurse practitioner, or a physician's assistant plant control operator working with me, has a face-to -face encounter with this patient.
== END 2017-02-05 15:21 | disposition home or self-care (01) | DRG 853 ==
LOC: EMEROO 05:15 → ICNU 05:42 → SUATTDRO 05:42 → ICNU 06:30 → 2NNU 07:23
PROVIDERS: ADMIT Emergency Medicine; ATTEND Internal Medicine